=== PATIENT | male | born 1940 | race Caucasian/White ===

== ENCOUNTER 2018-07-18 15:09 | Emergency (ER) | payer MEDICARE, OTHER ==
[~2018-07-18] VITALS: Ht 182.9 cm; Wt 103.0 kg
[~2018-07-18 15:09] MED LIST: ANTIBIOTIC; DARVOCET; FLT05NA16
--- NOTE | 2018-07-18 15:38 | ED Abdominal Pain ---
General Stated Complaint: R SIDE PAIN Source of Information: Patient, Family History of Present Illness Date Seen by Provider: Jul 18, 2018 Time Seen by Provider: 15:34 Initial Comments This 78-year-old white male presents with right lower quadrant pain of 4 days' duration. Patient states the pain is dull and nonradiating. It is moderate in severity. There is no associated nausea, vomiting, fever, chills, dysuria, flank pain, or similar pain in the past. Patient believes that he's had a previous appendectomy approximately 20 years ago. Patient has had bilateral inguinal herniorrhaphy. The patient has had kidney stones in the past which have caused significantly different pain pattern than what he is presently experiencing. The patient employed an enema with good results in terms of output but no improvement in terms of his pain. Allergies and Home Medications Allergies Coded Allergies: Penicillins (Unverified Allergy, Mild, 02/16/09) Patient Home Medication List Home Medication List Reviewed: Yes Review of Systems Review of Systems Constitutional: No chills, No fever EENTM: No Blurred Vision Respiratory: Denies Cough Cardiovascular: Denies Chest Pain Gastrointestinal: Abdominal Pain (right lower quadrant); Denies Diarrhea, Denies Nausea, Denies Vomiting Genitourinary: Denies Burning, Denies Frequency, Denies Hematuria Musculoskeletal: No back pain, No joint pain Skin: No rash Psychiatric/Neurological: No Symptoms Reported Endocrine: No Symptoms Reported Hematologic/Lymphatic: No Symptoms Reported Past Glpulcu-Fsdsks-Ezycmd Hx Past Med/Social Hx: Reviewed Nursing Past Med/Soc Hx Patient Social History Recent Foreign Travel: No Contact w/Someone Who Travel: No Immunizations Up To Date Date of Pneumonia Vaccine: Jul 26, 2012 Past Medical History Reproductive Disorders: No Physical Exam Vital Signs Vital Signs - First Documented 07/18/18 15:35 Temp 97.9 Pulse 78 Resp 16 B/P (MAP) 149/88 (108) Pulse Ox 96 O2 Delivery Room Air Capillary Refill : Height/Weight/BMI Height: '" Weight: lbs. oz. kg; BMI Method: General Appearance: WD/WN, no apparent distress HEENT: normal ENT inspection Neck: normal inspection Respiratory: normal breath sounds Cardiovascular: regular rate, rhythm Gastrointestinal: normal bowel sounds, tenderness (there is moderate tenderness the right lower quadrant. No masses or rebound were noted.) Extremities: normal range of motion, non-tender, normal inspection Back: normal inspection Neurologic/Psychiatric: no motor/sensory deficits, alert Skin: normal color, warm/dry Progress/Results/Core Measures Results/Orders Lab Results Laboratory Tests Test 07/18/18 15:55 07/18/18 16:06 Range/Units White Blood Count 11.9 H 4.3-11.0 10^3/uL Red Blood Count 4.69 4.35-5.85 10^6/uL Hemoglobin 13.8 13.3-17.7 G/DL Hematocrit 39 L 40-54 % Mean Corpuscular Volume 83 80-99 FL Mean Corpuscular Hemoglobin 29 25-34 PG Mean Corpuscular Hemoglobin Concent 35 32-36 G/DL Red Cell Distribution Width 13.2 10.0-14.5 % Platelet Count 219 130-400 10^3/uL Mean Platelet Volume 9.0 7.4-10.4 FL Neutrophils (%) (Auto) 85 H 42-75 % Lymphocytes (%) (Auto) 5 L 12-44 % Monocytes (%) (Auto) 10 0-12 % Eosinophils (%) (Auto) 0 0-10 % Basophils (%) (Auto) 0 0-10 % Neutrophils # (Auto) 10.2 H 1.8-7.8 X 10^3 Lymphocytes # (Auto) 0.6 L 1.0-4.0 X 10^3 Monocytes # (Auto) 1.2 H 0.0-1.0 X 10^3 Eosinophils # (Auto) 0.0 0.0-0.3 10^3/uL Basophils # (Auto) 0.0 0.0-0.1 10^3/uL Neutrophils % (Manual) 87 % Lymphocytes % (Manual) 5 % Monocytes % (Manual) 4 % Eosinophils % (Manual) 0 % Basophils % (Manual) 2 % Band Neutrophils 0 % Hypersegmented Neutrophils SLIGHT Reactive Lymphocytes 2 % Toxic Granulation 1+ Poikilocytosis SLIGHT Microcytosis SLIGHT Elliptocytes SLIGHT Sodium Level 140 135-145 MMOL/L Potassium Level 4.0 3.6-5.0 MMOL/L Chloride Level 100 98-107 MMOL/L Carbon Dioxide Level 25 21-32 MMOL/L Anion Gap 15 H 5-14 MMOL/L Blood Urea Nitrogen 26 H 7-18 MG/DL Creatinine 1.59 H 0.60-1.30 MG/DL Estimat Glomerular Filtration Rate 42 BUN/Creatinine Ratio 16 Glucose Level 112 H 70-105 MG/DL Calcium Level 9.5 8.5-10.1 MG/DL Corrected Calcium 9.3 8.5-10.1 MG/DL Total Bilirubin 1.0 0.1-1.0 MG/DL Aspartate Amino Transf (AST/SGOT) 25 5-34 U/L Alanine Aminotransferase (ALT/SGPT) 20 0-55 U/L Alkaline Phosphatase 105 40-136 U/L Total Protein 7.3 6.4-8.2 GM/DL Albumin 4.3 3.2-4.5 GM/DL Lipase 10 8-78 U/L Urine Color YELLOW Urine Clarity CLEAR Urine pH 7 5-9 Urine Specific [place] 1.005 L 1.016-1.022 Urine Protein 2+ H NEGATIVE Urine Glucose (UA) NEGATIVE NEGATIVE Urine Ketones 3+ H NEGATIVE Urine Nitrite NEGATIVE NEGATIVE Urine Bilirubin NEGATIVE NEGATIVE Urine Urobilinogen NORMAL NORMAL MG/DL Urine Leukocyte Esterase NEGATIVE NEGATIVE Urine RBC (Auto) 3+ H NEGATIVE Urine RBC 10-25 H /HPF Urine WBC 0-2 /HPF Urine Squamous Epithelial Cells 0-2 /HPF Urine Renal Epithelial Cells NONE /HPF Urine Crystals NONE /LPF Urine Bacteria TRACE /HPF Urine Casts PRESENT /LPF Urine Hyaline Casts 0-2 H /LPF Urine Mucus SMALL H /LPF Urine Culture Indicated NO My Orders Orders - BRIAN MONTEZ MD Comprehensive Metabolic Panel (07/18/18 15:32) Lipase (07/18/18 15:32) Ua Culture If Indicated (07/18/18 15:32) Cbc With Automated Diff (07/18/18 15:32) Ns Iv 1000 Ml (Sodium Chloride 0.9%) (07/18/18 15:45) Manual Differential (07/18/18 15:55) Ct Abdomen/Pelvis Wo (07/18/18 15:32) Vital Signs/I&O 07/18/18 15:35 Temp 97.9 Pulse 78 Resp 16 B/P (MAP) 149/88 (108) Pulse Ox 96 O2 Delivery Room Air Progress Progress Note : Time: 17:29 Progress Note The patient's laboratory evaluation was essentially unremarkable including CBC and urinalysis. CT the abdomen and pelvis demonstrated a 5 mm right distal UVJ stone that was obstructing. I shared the information with patient and family. I asked that they follow-up with her urologist with a phone call in the morning to the office. As patient return if any further problems or questions. Departure Impression Primary Impression: Kidney stone Disposition: HOME, SELF-CARE Condition: Unchanged Departure-Patient Inst. Decision time for Depature: 17:35 Referrals: BRIAN COULTER MD (PCP/Family) Primary Care Physician FAY BROOKS MD Patient Instructions: Kidney Stones (DC) Add. Discharge Instructions: Follow-up with - call the office in the morning. Flomax and Hydrocodone as prescribed. Come back if any problems. BRIAN MONTEZ MD Jul 18, 2018 15:38
[2018-07-18] MEDS ORDERED: NS IV 1000 ML 1,000 ML IV SCH (15:45)
[2018-07-18 16:19] LABS: BASOPHILS % (AUTO) 0 % (0-10); EOSINOPHILS % (AUTO) 0 % (0-10); HEMATOCRIT 39 % (40-54); HEMOGLOBIN 13.8 G/DL (13.3-17.7); LYMPHOCYTES # (AUTO) 0.6 X 10^3 (1.0-4.0); LYMPHOCYTES % (AUTO) 5 % (12-44); MEAN CORPUSCULAR HEMOGLOBIN 29 PG (25-34); MEAN CORPUSCULAR HGB CONC 35 G/DL (32-36); MEAN CORPUSCULAR VOLUME 83 FL (80-99); MONOCYTES # (AUTO) 1.2 X 10^3 (0.0-1.0); MONOCYTES % (AUTO) 10 % (0-12); NEUTROPHILS # (AUTO) 10.2 X 10^3 (1.8-7.8); NEUTROPHILS % (AUTO) 85 % (42-75); PLATELET COUNT 219 10^3/uL (130-400); RED BLOOD COUNT 4.69 10^6/uL (4.35-5.85); RED CELL DISTRIBUTION WIDTH 13.2 % (10.0-14.5); WHITE BLOOD COUNT 11.9 10^3/uL (4.3-11.0)
--- OUTSIDE RECORDS SUMMARY | 2018-07-18 16:33 | XMS REPORT | Continuity of Care Document ---
Author Author [facility] Organization [facility] Address Unknown Phone Unavailable Allergies There is no data. Medications There is no data. Problems There is no data. Procedures There is no data. Results There is no data. Encounters ACCT No. Visit Date/Time Discharge Status Pt. Type Provider Facility Loc./Unit Complaint [id number] 01/31/2014 07:42:00 01/31/2014 23:59:59 CLS Outpatient [id number] 01/24/2014 14:35:00 01/24/2014 23:59:59 CLS Outpatient [id number] 06/20/2013 09:12:00 06/20/2013 23:59:59 CLS Outpatient
[2018-07-18 16:37] LABS: BACTERIA,URINE TRACE /HPF; BILIRUBIN,URINE NEGATIVE (NEGATIVE); CLARITY,URINE CLEAR; COLOR,URINE YELLOW; GLUCOSE, URINE (UA) NEGATIVE (NEGATIVE); KETONES,URINE 3+ (NEGATIVE); LEUKOCYTE ESTERASE ,URINE NEGATIVE (NEGATIVE); NITRITE,URINE NEGATIVE (NEGATIVE); PH,URINE 7 (5-9); PROTEIN,URINE 2+ (NEGATIVE); UROBILINOGEN,URINE NORMAL (NORMAL); WBC,URINE 0-2 /HPF
[2018-07-18 16:38] LABS: HYALINE CASTS, URINE 0-2 /LPF; SQUAMOUS EPITHELIAL CELL,UR 0-2 /HPF
[2018-07-18 16:38] LABS: ALBUMIN 4.3 GM/DL (3.2-4.5); CALCIUM 9.5 MG/DL (8.5-10.1); CREATININE SERUM 1.59 MG/DL (0.60-1.30); TOTAL PROTEIN 7.3 GM/DL (6.4-8.2)
[2018-07-18 16:47] LABS: BAND NEUTROPHILS 0 %; BASOPHILS % (MANUAL) 2 %; EOSINOPHILS % (MANUAL) 0 %; LYMPHOCYTES % (MANUAL) 5 %; MONOCYTES % (MANUAL) 4 %; NEUTROPHILS % (MANUAL) 87 %
[2018-07-18 16:48] LABS: ELLIPT/OVALOCYTES SLIGHT; MICROCYTOSIS SLIGHT; POIKILOCYTOSIS SLIGHT; REACTIVE LYMPHOCYTES 2 %; TOXIC GRANULATION/VACUOLAZATIO 1+
[2018-07-18 16:49] LABS: HYPERSEGMENTED NEUT SLIGHT
--- NOTE | 2018-07-18 16:59 | Diagnostic Imaging Report ---
PROCEDURE: CT abdomen and pelvis without contrast. TECHNIQUE: Multiple contiguous axial images were obtained through the abdomen and pelvis without the use of intravenous contrast. INDICATION: Abdominal pain. There is nodular pleural thickening at the lung bases adjacent to the dome of each diaphragm of uncertain etiology. These could be some pleural plaques but no calcifications are seen. Well-defined mass is not identified. There is no effusion. The liver, gallbladder and bile ducts are normal. The spleen, pancreas and adrenals are normal. Left kidney is normal. There is mild pelvocaliectasis present on the right with the right ureter being dilated down to the ureterovesical junction where there is a 3 x 5 mm calculus just proximal to the ureterovesical junction. There is no intrinsic abnormality of the bladder. Prostate is normal. There is diverticulosis of the colon with no evidence of diverticulitis or other acute bowel abnormality. IMPRESSION: There is a 5 mm calculus in the distal right ureter causing obstruction at this site. There is diverticulosis of the colon with no evidence of diverticulitis. There is nodularity of both hemidiaphragms but this is stable compared to the prior CT from 2008. Dictated by: Dictated on workstation # [id number]
[2018-07-18] MEDS ORDERED: ONDANSETRON 4 MG/2 ML (SDV) Z0FRAN ONE (17:42)
[2018-07-18] MEDS ORDERED: ONDANSETRON 4 MG/2 ML (SDV) Z0FRAN IVP ONE (17:45)
[2018-07-18 18:59] VITALS: BP 155/78
[2018-07-19] MEDS ORDERED: LOSA1TAB23 PO (15:22)
[2018-07-19] MEDS ORDERED: TRAV5DRO OU (15:22)
[2018-07-19] MEDS ORDERED: FLUT16SP22 NSEACH (15:22)
[2018-07-19] MEDS ORDERED: TAMS0.4C2 PO (15:22)
[2018-07-19] MEDS ORDERED: HYDR-3812 PO (15:22)
== END 2018-07-18 18:58 | disposition home or self-care (01) ==
LOC: EDUNIT# 15:09 → ER 15:10
DX: N20.2 Calculus of kidney with calculus of ureter (principal); Z88.0 Allergy status to penicillin; Z90.89 Acquired absence of other organs; Z98.890 Other specified postprocedural states; Z87.442 Personal history of urinary calculi
CPT/HCPCS: 36415; 74176; 80053; 81000; 83690; 85007; 85027; 96374

== ENCOUNTER 2018-07-19 14:35 | Outpatient (CLI) | payer MEDICARE, OTHER ==
[~2018-07-19] VITALS: Ht 182.9 cm; Wt 103.0 kg
[~2018-07-19 14:35] MED LIST changes: -CIPR-225 PO; -FLUT16SP22 NSEACH; -HYDR-3812 PO; -LOSA1TAB23 PO; -TAMS0.4C2 PO; -TRAV5DRO OU
[2018-07-19] MEDS ORDERED: LOSA1TAB23 PO (15:22)
[2018-07-19] MEDS ORDERED: TAMS0.4C2 PO (15:22)
[2018-07-19] MEDS ORDERED: TRAV5DRO OU (15:22)
[2018-07-19] MEDS ORDERED: FLUT16SP22 NSEACH (15:22)
[2018-07-19] MEDS ORDERED: HYDR-3812 PO (15:22)
[2018-07-20] MEDS ORDERED: CIPR-225 PO (10:59)
== END 2018-07-19 15:38 | disposition home or self-care (01) ==
LOC: PREOP 14:35
PROVIDERS: ATTEND Urology
DX: Z01.818 Encounter for other preprocedural examination (principal)

== ENCOUNTER → 2018-07-19 | Outpatient (CLI) | payer MEDICARE, OTHER ==
[~2018-07-19] MED LIST changes: +CIPR-225 PO; +FLUT16SP22 NSEACH; +HYDR-3812 PO; +LOSA1TAB23 PO; +TAMS0.4C2 PO; +TRAV5DRO OU
--- NOTE | 2018-07-19 13:37 | Diagnostic Imaging Report ---
Indication: Nephrolithiasis. KUB 1:34 PM Since comparison exam from 04/16/2009, the ureteral stent has been removed. There are no opacities seen over the right kidney. There is a 3 mm opacity projecting over the left 12th rib which also is in the shadow of the left renal upper pole. There is a 3 mm calcification near the right ureterovesical junction that could be either phlebolith versus distal ureteral calculus. Impression: Questionable calculus upper pole left kidney. Questionable calculus right ureterovesical junction. Dictated by: Dictated on workstation # [id number]
== END ==
LOC: RAD 13:02
PROVIDERS: ATTEND Urology
DX: N20.2 Calculus of kidney with calculus of ureter (principal)
CPT/HCPCS: 74018

== ENCOUNTER 2018-07-20 06:56 | Day surgery (SDC) | payer MEDICARE, OTHER ==
[~2018-07-20] VITALS: Ht 182.9 cm; Wt 103.0 kg
[~2018-07-20 06:56] MED LIST changes: +FLUT16SP22 NSEACH; +HYDR-3812 PO; +LOSA1TAB23 PO; +TAMS0.4C2 PO; +TRAV5DRO OU
--- OUTSIDE RECORDS SUMMARY | 2018-07-20 07:06 | XMS REPORT | Continuity of Care Document ---
Author Author [facility] Organization [facility] Address Unknown Phone Unavailable Allergies Active Description Code Type Severity Reaction Onset Reported/Identified Relationship to Patient Clinical Status Yes Penicillins [id number] Drug Allergy Mild N/A 02/16/2009 Yes Penicillins [id number] Drug Allergy Mild PT ALLERGIC TO 07/19/2018 Medications There is no data. 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 Results Test Result Range Complete blood count (CBC) with automated white blood cell (WBC) differential - 07/18/18 15:55 Blood leukocytes automated count (number/volume) 11.9 10*3/uL 4.3-11.0 Blood erythrocytes automated count (number/volume) 4.69 10*6/uL 4.35-5.85 Venous blood hemoglobin measurement (mass/volume) 13.8 g/dL 13.3-17.7 Blood hematocrit (volume fraction) 39 % 40-54 Automated erythrocyte mean corpuscular volume 83 [foz_us] 80-99 Automated erythrocyte mean corpuscular hemoglobin (mass per erythrocyte) 29 pg 25-34 Automated erythrocyte mean corpuscular hemoglobin concentration measurement ( mass/volume) 35 g/dL 32-36 Automated erythrocyte distribution width ratio 13.2 % 10.0-14.5 Automated blood platelet count (count/volume) 219 10*3/uL 130-400 Automated blood platelet mean volume measurement 9.0 [foz_us] 7.4-10.4 Automated blood neutrophils/100 leukocytes 85 % 42-75 Automated blood lymphocytes/100 leukocytes 5 % 12-44 Blood monocytes/100 leukocytes 10 % 0-12 Automated blood eosinophils/100 leukocytes 0 % 0-10 Automated blood basophils/100 leukocytes 0 % 0-10 Blood neutrophils automated count (number/volume) 10.2 10*3 1.8-7.8 Blood lymphocytes automated count (number/volume) 0.6 10*3 1.0-4.0 Blood monocytes automated count (number/volume) 1.2 10*3 0.0-1.0 Automated eosinophil count 0.0 10*3/uL 0.0-0.3 Automated blood basophil count (count/volume) 0.0 10*3/uL 0.0-0.1 Comprehensive metabolic panel - 07/18/18 15:55 Serum or plasma sodium measurement (moles/volume) 140 mmol/L 135-145 Serum or plasma potassium measurement (moles/volume) 4.0 mmol/L 3.6-5.0 Serum or plasma chloride measurement (moles/volume) 100 mmol/L 98-107 Carbon dioxide 25 mmol/L 21-32 Serum or plasma anion gap determination (moles/volume) 15 mmol/L 5-14 Serum or plasma urea nitrogen measurement (mass/volume) 26 mg/dL 7-18 Serum or plasma creatinine measurement (mass/volume) 1.59 mg/dL 0.60-1.30 Serum or plasma urea nitrogen/creatinine mass ratio 16 NRG Serum or plasma creatinine measurement with calculation of estimated glomerular filtration rate 42 NRG Serum or plasma glucose measurement (mass/volume) 112 mg/dL 70-105 Serum or plasma calcium measurement (mass/volume) 9.5 mg/dL 8.5-10.1 Serum or plasma total bilirubin measurement (mass/volume) 1.0 mg/dL 0.1-1.0 Serum or plasma alkaline phosphatase measurement (enzymatic activity/volume) 105 U/L 40-136 Serum or plasma aspartate aminotransferase measurement (enzymatic activity/ volume) 25 U/L 5-34 Serum or plasma alanine aminotransferase measurement (enzymatic activity/volume ) 20 U/L 0-55 Serum or plasma protein measurement (mass/volume) 7.3 g/dL 6.4-8.2 Serum or plasma albumin measurement (mass/volume) 4.3 g/dL 3.2-4.5 CALCIUM CORRECTED 9.3 mg/dL 8.5-10.1 Lipase - 07/18/18 15:55 Lipase 10 U/L 8-78 Blood manual differential performed detection - 07/18/18 15:55 Blood monocytes/100 leukocytes 4 % NRG Manual blood segmented neutrophils/100 leukocytes 87 % NRG Blood band neutrophils/100 leukocytes 0 % NRG Manual blood lymphocytes/100 leukocytes 5 % NRG Manual eosinophils/100 leukocytes in nose 0 % NRG Manual blood basophils/100 leukocytes 2 % NRG Blood lymphocytes variant/100 leukocytes 2 % NRG Blood ovalocytes detection by light microscopy SLIGHT NRG Blood toxic granules detection by light microscopy 1+ NRG Blood poikilocytosis detection by light microscopy SLIGHT NRG Blood microcytes detection by light microscopy SLIGHT NRG Blood hypersegmented neutrophils detection by light microscopy SLIGHT NRG Complete urinalysis with reflex to culture - 07/18/18 16:06 Urine color determination YELLOW NRG Urine clarity determination CLEAR NRG Urine pH measurement by test strip 7 5-9 Specific gravity of urine by test strip 1.005 1.016- 1.022 Urine protein assay by test strip, semi-quantitative 2+ NEGATIVE Urine glucose detection by automated test strip NEGATIVE NEGATIVE Erythrocytes detection in urine sediment by light microscopy 3+ NEGATIVE Urine ketones detection by automated test strip 3+ NEGATIVE Urine nitrite detection by test strip NEGATIVE NEGATIVE Urine total bilirubin detection by test strip NEGATIVE NEGATIVE Urine urobilinogen measurement by automated test strip (mass/volume) NORMAL NORMAL Urine leukocyte esterase detection by dipstick NEGATIVE NEGATIVE Automated urine sediment erythrocyte count by microscopy (number/high power field) [HPF] NRG Automated urine sediment leukocyte count by microscopy (number/high power field ) [HPF] NRG Bacteria detection in urine sediment by light microscopy TRACE NRG Squamous epithelial cells detection in urine sediment by light microscopy 0-2 NRG Crystals detection in urine sediment by light microscopy NONE NRG Casts detection in urine sediment by light microscopy PRESENT NRG Mucus detection in urine sediment by light microscopy SMALL NRG Complete urinalysis with reflex to culture NO NRG Hyaline casts detection in urine sediment by light microscopy 0-2 NRG Renal epithelial cells detection in urine sediment by light microscopy NONE NRG Encounters ACCT No. Visit Date/Time Discharge Status Pt. Type Provider Facility Loc./Unit Complaint [id number] 07/19/2018 14:35:00 07/19/2018 15:38:00 DIS Outpatient FAY BROOKS MD [facility] PREOP RIGHT URETERAL STONE [id number] 07/18/2018 15:10:00 07/18/2018 18:58:00 DIS Emergency TC LESLIE, BRIAN Tran [facility] ER R SIDE PAIN [id number] 01/31/2014 07:42:00 01/31/2014 23:59:59 CLS Outpatient DELIA CARTWRIGHT [facility] RAD ABD FULLNESS,PAIN [id number] 01/24/2014 14:35:00 01/24/2014 23:59:59 CLS Outpatient TODD LESLIE, FAY Najera [facility] RAD RT EPIDIDMITIS [id number] 06/20/2013 09:12:00 06/20/2013 23:59:59 CLS Outpatient CLEVELAND RENTERIA [facility] RAD CHEST PAIN,HERNANDEZ [id number] 07/20/2018 11:45:00 PEN Preadmit FAY BROOKS MD [facility] SDC RIGHT URETERAL STONE [id number] 07/19/2018 13:02:00 ACT Outpatient FAY BROOKS MD [facility] RAD N20.0 RT URETERAL STONE
[2018-07-20 07:15] VITALS: BP 152/87
[2018-07-20] MEDS ORDERED: cefTRIAXone FOR IV USE 1,000 MG in NS (IVPB) 50 ML IV ONE (07:30)
[2018-07-20] MEDS: LACTATED RINGERS 1,000 ML IV PRN ×2 (07:35→09:38)
--- NOTE | 2018-07-20 07:59 | Progress Note-Pre Operative ---
Pre-Operative Progress Note H&P Reviewed The H&P was reviewed, patient examined and no changes noted. Date Seen by Provider: Jul 20, 2018 Time Seen by Provider: 07:58 Date H&P Reviewed: Jul 20, 2018 Time H&P Reviewed: 07:58 Pre-Operative Diagnosis: RT DISTAL URETERAL STONE FAY BROOKS MD Jul 20, 2018 7:59 am
[2018-07-20] MEDS ORDERED: ONDANSETRON 4 MG/2 ML (SDV) Z0FRAN ONE (08:05)
[2018-07-20] MEDS ORDERED: LIDOCAINE PF 2% 2 ML (XYLOCAINE) VIAL ONE (08:05)
[2018-07-20] MEDS ORDERED: proPOfol 200 MG/20 ML (DIPRIVAN) VIAL IV ONE (08:05)
[2018-07-20] MEDS ORDERED: MIDAZOLAM 2 MG/2 ML (VERSED) VIAL ONE (08:06)
[2018-07-20] MEDS ORDERED: fentaNYL INJECTION 100 MCG/2 ML AMP ONE (08:06)
[2018-07-20] MEDS ORDERED: SEVOFLURANE (ULTANE) 15 ML INHAL SOLN ONE ×6 (08:08→09:51)
[2018-07-20] MEDS ORDERED: KETOROLAC 30 MG/ML VIAL ONE (08:08)
[2018-07-20] MEDS ORDERED: FUROSEMIDE 40 MG/4 ML INJ (LASIX) ONE (08:08)
--- NOTE | 2018-07-20 08:20 | Diagnostic Imaging Report ---
INDICATION: Preop ESWL. Compared with study one day prior. Right pelvic calcification correlating with the distal ureteral stone present on earlier CT is 4 mm cephalocaudal unchanged. Left pelvic calcification is unchanged previously shown to be vascular. Tiny right intrarenal stone present on earlier CT is not apparent at this exam. No adverse development. IMPRESSION: Roughly 4 mm distal right ureteral stone is radiographically unchanged from prior exams. Dictated by: Dictated on workstation # [id number]
--- NOTE | 2018-07-20 09:20 | Progress Note-Post Operative ---
Post-Operative Progess Note Surgeon (s)/Residential Coordinator (s) Surgeon FAY BROOKS MD Residential Coordinator: NONE Pre-Operative Diagnosis RT DISTAL URETERAL STONE Post-Operative Diagnosis SAME Procedure & Operative Findings Date of Procedure 07/20/18 Procedure Performed/Findings ATTEMPTED URETEROSCOPY AND RT ESWL Anesthesia Type GENERAL Estimated Blood Loss Estimated blood loss (mL): NONE Specimens/Packing Specimens Removed NONE Packing: NONE FAY BROOKS MD Jul 20, 2018 9:20 am
--- NOTE | 2018-07-20 09:23 | Discharge Inst-Urology ---
Discharge Inst-Urology Patient Instructions/Follow Up Plan Please make appointment to been seen in office in 3 weeks. KUB prior to it KUB on way home Post ESWL instructions Increase oral fluids for 48 hours and then as needed. Diet and Activity as tolerated. If questions or concerns contact your physician Or seek help at emergency department. FAY BROOKS MD Jul 20, 2018 9:23 am
[2018-07-20] MEDS ORDERED: LACTATED RINGERS 0 ML IV ONE (09:34)
[2018-07-20] MEDS ORDERED: ONDANSETRON 4 MG/2 ML (SDV) Z0FRAN IVP PRN (10:00)
[2018-07-20] MEDS ORDERED: morphine INJ 10 MG/ML 1ML (SYR OR VIAL) IVP ONE (10:00)
[2018-07-20 10:40] VITALS: BP 138/65
[2018-07-20] MEDS ORDERED: CIPR-225 PO (10:59)
[2018-07-20 11:10] VITALS: BP 129/63
[2018-07-20 11:40] VITALS: BP 134/67
[2018-07-20 11:45] VITALS: BP 134/67
--- NOTE | 2018-07-20 12:26 | Anesthesia-General Post-Op ---
General Patient Condition Mental Status/LOC: Same as Preop Cardiovascular: Satisfactory Nausea/Vomiting: Absent Respiratory: Satisfactory Pain: Controlled Complications: Absent Post Op Complications Complications None Follow Up Care/Instructions Patient Instructions None needed. Anesthesia/Patient Condition Patient Condition Patient is doing well, no complaints, stable vital signs, no apparent adverse anesthesia problems. No complications reported per nursing. D/C home per [facility] Criteria: Yes BOLA RODRIGUEZ CRNA Jul 20, 2018 12:26
--- NOTE | 2018-07-20 13:21 | Diagnostic Imaging Report ---
INDICATION: Obstructive uropathy. COMPARISON: 07/20/2018. FINDINGS: The bowel gas pattern is nonspecific. There is a persistent calcification near the right UVJ, suspect for a distal ureteral stone. There are no other abnormal abdominal calcifications. IMPRESSION: Persistent 4-5 mm calcification near the right UVJ, suspect for a distal ureteral stone. Nonspecific bowel gas pattern. Dictated by: Dictated on workstation # [id number]
--- NOTE | 2018-07-20 14:53 | OPERATIVE REPORT ---
DATE OF SERVICE: 07/20/2018 PREOPERATIVE DIAGNOSIS: Right distal ureteral stone. POSTOPERATIVE DIAGNOSIS: Right distal ureteral stone. OPERATION PERFORMED: Attempted right ureteroscopy and right ESWL. SURGEON: Chaka Brooks MD ANESTHESIA: General. COMPLICATIONS: None. DESCRIPTION OF PROCEDURE: Under satisfactory general anesthesia, the patient in lithotomy position in the cystoscopy suite. Genitalia were prepped and draped in the usual sterile fashion. The cystoscope was introduced under vision. The anterior urethra was normal. The prostate was not enlarged. The bladder neck was open. The bladder revealed some trabeculations. Ureteric orifices were displaced upward bilaterally with clear efflux sluggish on the right side. I was unable to perform a right ureteroscopy because of a curvature in the ureter. I discontinued any further attempt in order not to cause any harm and moved the patient to the ESWL room supine on the special bed. The stone was localized and we had to go to 3500 shocks at kV of 6 to completely fragment the stone. The patient received 40 mg of Lasix and 30 mg of Toradol IV at the end of the procedure. He tolerated the procedure and anesthesia well and was sent to recovery room in stable condition. Job ID: [id number] DocumentID: [id number] Dictated Date: 07/20/2018 09:51:28 [place] Operator Date: 07/20/2018 14:52:58 Dictated By: CHAKA BROOKS MD [facility]
== END 2018-07-20 11:45 | disposition home or self-care (01) ==
LOC: SDC 06:56
PROVIDERS: ATTEND Urology
DX: N20.1 Calculus of ureter (principal); I10 Essential (primary) hypertension; K21.9 Gastro-esophageal reflux disease without esophagitis; E66.9 Obesity, unspecified; Z68.30 Body mass index [BMI] 30.0-30.9, adult; Z79.899 Other long term (current) drug therapy
CPT/HCPCS: 74018; 87081

== ENCOUNTER → 2018-08-10 | Outpatient (CLI) | payer MEDICARE, OTHER ==
[~2018-08-10] MED LIST changes: +CIPR-225 PO
--- NOTE | 2018-08-10 17:54 | Diagnostic Imaging Report ---
INDICATION: Status post lithotripsy with distal right ureteral stone. TIME OF EXAM: 02:01 p.m. Correlation is made with prior abdominal radiograph from 07/20/2018. FINDINGS: Previously noted calculus in the right pelvis near the UVJ is no longer appreciated. No radiopaque urinary tract calculi are seen. The bowel gas pattern is unremarkable. IMPRESSION: Right pelvic calcification is no longer visualized. Dictated by: Dictated on workstation # [id number]
== END ==
LOC: RAD 13:25
PROVIDERS: ATTEND Urology
DX: N28.89 Other specified disorders of kidney and ureter (principal); Z87.442 Personal history of urinary calculi
CPT/HCPCS: 74018

== ENCOUNTER 2020-05-21 05:33 | Outpatient (RCR) | payer MEDICARE, OTHER ==
[~2020-05-21] VITALS: Ht 182.9 cm; Wt 102.3 kg
[~2020-05-21 05:33] MED LIST changes: +ACHD5005 PO; -HYDR-3812 PO
== END 2020-05-21 10:19 | disposition home or self-care (01) ==
LOC: PREOP 05:33
PROVIDERS: ATTEND Surgery
DX: Z01.812 Encounter for preprocedural laboratory examination (principal); C44.619 Basal cell carcinoma of skin of left upper limb, including shoulder; Z20.828 Contact with and (suspected) exposure to other viral communicable diseases
CPT/HCPCS: 87635

== ENCOUNTER 2020-05-23 10:56 | Day surgery (SDC) | payer MEDICARE, OTHER ==
[~2020-05-23] VITALS: Ht 182.9 cm; Wt 102.3 kg
[2020-05-23] VITALS (8 sets, daily range): BP systolic 99–151; BP diastolic 59–76
[2020-05-23] MEDS ORDERED: LACTATED RINGERS 1,000 ML IV PRN (11:33)
[2020-05-23] MEDS ORDERED: CLINDAMYCIN 600 MG/50 ML IVPB 50 ML IV ONE (11:45)
[2020-05-23] MEDS ORDERED: BUP/EPI 0.5% 1:200,000 (MARCAINE) 10ML VIAL IJ ONE ×2 (12:15)
[2020-05-23] MEDS ORDERED: PROPOFOL INJECTION 50 ML IV ONE (12:20)
[2020-05-23] MEDS ORDERED: MIDAZOLAM 2 MG/2 ML (VERSED) VIAL ONE (12:21)
[2020-05-23] MEDS ORDERED: fentaNYL INJECTION 100 MCG/2 ML AMP ONE (12:21)
--- OUTSIDE RECORDS SUMMARY | 2020-05-23 12:43 | XMS REPORT | Continuity of Care Document ---
Author Organization Unknown Address Unknown Phone Unavailable Allergies Active Description Code Type Severity Reaction Onset Reported/Identified Relationship to Patient Clinical Status Yes Penicillins [id number] Drug Aller gy Mild N/A 02/16/2009 Yes Penicillins [id number] Drug Aller gy Mild PT ALLERGIC TO 07/19/2018 Medications There is no data. 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 07/18/2018 DELIA CARTWRIGHT WIRE STRIPPING MACHINE OPERATOR Ot 789.00 ABDOMINAL PAIN, UNSPECIFIED SITE 07/18/2018 DELIA CARTWRIGHT WIRE STRIPPING MACHINE OPERATOR Ot 789.1 HEPATOMEGALY 07/19/2018 FAY BROOKS MD Ot Z01.8 18 ENCOUNTER FOR OTHER PREPROCEDURAL EXAMIN 07/20/2018 FAY BROOKS MD Ot Z01.8 18 ENCOUNTER FOR OTHER PREPROCEDURAL EXAMIN 07/20/2018 FAY BROOKS MD Ot E66.9 OBESITY, UNSPECIFIED 07/20/2018 FAY BROOKS MD Ot I10 ESSENTIAL (PRIMARY) HYPERTENSION 07/20/2018 FAY BROOKS MD, Ot K21.9 GASTRO-ESOPHAGEAL REFLUX DISEASE WITHOUT 07/20/2018 FAY BROOKS MD Ot N20.1 CALCULUS OF URETER 07/20/2018 FAY BROOKS MD, Ot Z68.3 0 BODY MASS INDEX (BMI) 30.0-30.9, ADULT 07/20/2018 FAY BROOKS MD Ot Z79.8 99 OTHER SOAP GRINDER (CURRENT) DRUG THERAPY 07/28/2018 TODD MD, FAY A Ot E66.9 OBESITY, UNSPECIFIED 07/28/2018 FAY BROOKS MD Ot I10 ESSENTIAL (PRIMARY) HYPERTENSION 07/28/2018 FAY BROOKS MD Ot K21.9 GASTRO-ESOPHAGEAL REFLUX DISEASE WITHOUT 07/28/2018 FAY BROOKS MD Ot N20.1 CALCULUS OF URETER 07/28/2018 FAY BROOKS MD Ot Z68.3 0 BODY MASS INDEX (BMI) 30.0-30.9, ADULT 07/28/2018 FAY BROOKS MD Ot Z79.8 99 OTHER [facility] (CURRENT) DRUG THERAPY 07/28/2018 FAY BROOKS MD, Ot E66.9 OBESITY, UNSPECIFIED 07/28/2018 FAY BROOKS MD Ot I10 ESSENTIAL (PRIMARY) HYPERTENSION 07/28/2018 FAY BROOKS MD, Ot K21.9 GASTRO-ESOPHAGEAL REFLUX DISEASE WITHOUT 07/28/2018 FAY BROOKS MD Ot N20.1 CALCULUS OF URETER 07/28/2018 FAY BROOKS MD, Ot Z68.3 0 BODY MASS INDEX (BMI) 30.0-30.9, ADULT 07/28/2018 FAY BROOKS MD, Ot Z79.8 99 OTHER SOAP GRINDER (CURRENT) DRUG THERAPY 08/10/2018 FAY BROOKS MD Ot N20.2 CALCULUS OF KIDNEY WITH CALCULUS OF URET 08/11/2018 FAY BROOKS MD Ot N28.8 9 OTHER SPECIFIED DISORDERS OF KIDNEY AND 08/11/2018 FAY BROOKS MD Ot Z87.4 42 PERSONAL HISTORY OF URINARY CALCULI 09/03/2018 FAY BROOKS MD Ot N28.8 9 OTHER SPECIFIED DISORDERS OF KIDNEY AND 09/03/2018 FAY BROOKS MD, Ot Z87.4 42 PERSONAL HISTORY OF URINARY CALCULI Procedures There is no data. Results Test Result Range Complete blood count (CBC) with automate d white blood cell (WBC) differential - 07/18/18 15:55 Blood leukocytes automated count (number/volume) 11.9 10*3/uL 4.3-11.0 Blood erythrocytes automated count (number/volume) 4.69 10*6/uL 4.35-5.85 Venous blood hemoglobin measurement (mass/volume) 13.8 g/dL 13.3-17.7 Blood hematocrit (volume fraction) 39 % 40-54 Automated erythrocyte mean corpuscular volume 83 [ foz_us] 80-99 Automated erythrocyte mean corpuscular h emoglobin (mass per erythrocyte) 29 pg 25-34 Automated erythrocyte mean corpuscular h emoglobin concentration measurement (mass/volume) 35 g/dL 32-36 Automated erythrocyte distribution width ratio 13. 2 % 10.0- 14.5 Automated blood platelet count (count/volume) 219 10*3/uL [...] 10*3 1.0-4.0 Blood monocytes automated count (number/volume) 1. 2 10*3 0.0-1.0 Automated eosinophil count 0.0 10*3/uL 0 .0-0.3 Automated blood basophil count (count/volume) 0.0 10*3/uL 0.0-0.1 Comprehensive metabolic panel - 07/18/18 15:55 Serum or plasma sodium measurement (moles/volume) 140 mmol/L 135-145 Serum or plasma potassium measurement (moles/volume) 4.0 mmol/L 3.6-5.0 Serum or plasma chloride measurement (moles/volume) 100 mmol/L 98-107 Carbon dioxide 25 mmol/L 21-32 Serum or plasma anion gap determination (moles/volume) 15 mmol/L 5-14 Serum or plasma urea nitrogen measurement (mass/volume ) 26 mg/dL 7-18 Serum or plasma creatinine measurement (mass/volume) 1.59 mg/dL 0.60-1.30 Serum or plasma urea nitrogen/creatinine mass ratio 16 NRG Serum or plasma creatinine measurement w ith calculation of estimated glomerular filtration rate 42 NRG Serum or plasma glucose measurement (mass/volume) 112 mg/dL 70-105 Serum or plasma calcium measurement (mass/volume) 9.5 mg/dL 8.5-10.1 Serum or plasma total bilirubin measurement (mass/volu me) 1.0 mg/dL 0.1-1.0 Serum or plasma alkaline phosphatase cortney surement (enzymatic activity/volume) 105 U/L 40-136 Serum or plasma aspartate aminotransfera se measurement (enzymatic activity/volume) 25 U/L 5-34 Serum or plasma alanine aminotransferase measurement (enzymatic activity/volume) 20 U/L 0-55 Serum or plasma protein measurement (mass/volume) 7.3 g/dL 6.4-8.2 Serum or plasma albumin measurement (mass/volume) 4.3 g/dL 3.2-4.5 CALCIUM CORRECTED 9.3 mg/dL 8.5-10.1 Lipase - 07/18/18 15:55 Lipase 10 U/L 8-78 Blood manual differential performed dete ction - 07/18/18 15:55 Blood monocytes/100 leukocytes 4 % NRG Manual blood segmented neutrophils/100 leukocytes 87 % NRG Blood band neutrophils/100 leukocytes 0 % NRG Manual blood lymphocytes/100 leukocytes 5 % NRG Manual eosinophils/100 leukocytes in nose 0 % NRG Manual blood basophils/100 leukocytes 2 % NRG Blood lymphocytes variant/100 leukocytes 2 % NRG Blood ovalocytes detection by light microscopy SLI T NRG Blood toxic granules detection by light microscopy 1+ NRG Blood poikilocytosis detection by light microscopy SLIGHT NRG Blood microcytes detection by light microscopy I [facility] NRG Blood hypersegmented neutrophils detection by light mi croscopy SLIGHT NRG Complete urinalysis with reflex to cultu re - 07/18/18 16:06 Urine color determination YELLOW NRG Urine clarity determination CLEAR NR G Urine pH measurement by test strip 7 5-9 Specific gravity of urine by test strip 1.005 1.016-1.022 Urine protein assay by test strip, semi-quantitative 2+ NEGATIVE Urine glucose detection by automated test strip NE GATIVE NEGATIVE Erythrocytes detection in urine sediment by light micr oscopy 3+ NEGATIVE Urine ketones detection by automated test strip 3+ NEGATIVE Urine nitrite detection by test strip NEGATIVE NEGATIVE Urine total bilirubin detection by test strip NEGA TIVE NEGATIVE Urine urobilinogen measurement by automated test strip (mass/volume) NORMAL NORMAL Urine leukocyte esterase detection by dipstick NEG ATIVE NEGATIVE Automated urine sediment erythrocyte cou nt by microscopy (number/high power field) [HPF] NRG Automated urine sediment leukocyte count by microscopy (number/high power field) [HPF] NRG Bacteria detection in urine sediment by light microsco py TRACE NRG Squamous epithelial cells detection in u rine sediment by light microscopy 0-2 NRG Crystals detection in urine sediment by light microsco py NONE NRG Casts detection in urine sediment by light microscopy PRESENT NRG Mucus detection in urine sediment by light microscopy SMALL NRG Complete urinalysis with reflex to culture NO NRG Hyaline casts detection in urine sediment by light rick roscopy 0-2 NRG Renal epithelial cells detection in urin e sediment by light microscopy NONE NRG Methicillin resistant Staphylococcus aur eus (MRSA) screening culture - 07/20/18 07:25 Methicillin resistant Staphylococcus aureus (MRSA) scr eening culture NEG NRG Encounters ACCT No. Visit Date/Time Discharge Status Pt. Type Provider Facility Loc./Unit Complaint [id number] 05/21/2020 05:33:00 020 10:19:00 DIS Outpatient JAYESH ALEX DO [facility] PREOP MASS LEFT SHOULDER [id number] 08/10/2018 13:25:00 23:59:59 CLS Outpatient FAY BROOKS MD [facility] RAD STONES [id number] 07/20/2018 06:56:00 018 11:45:00 DIS Outpatient FAY BROOKS MD [facility] SDC RIGHT URETERAL STONE [id number] 07/19/2018 13:02:00 018 23:59:59 CLS Outpatient FAY BROOKS MD [facility] RAD N20.0 RT URETERAL STONE [id number] 07/19/2018 14:35:00 018 15:38:00 DIS Outpatient FAY BROOKS MD [facility] PREOP RIGHT URETERAL STONE [id number] 07/18/2018 15:10:00 18:58:00 DIS Emergency TC LESLIE, BRIAN Tran [facility] ER R SIDE PAIN [id number] 01/31/2014 07:42:00 014 23:59:59 CLS Outpatient DELIA CARTWRIGHT [facility] RAD JOSE [place] [id number] 01/24/2014 14:35:00 014 23:59:59 CLS Outpatient TODD LESLIE, FAY Najera [facility] RAD RT EPIDIDMITIS [id number] 06/20/2013 09:12:00 013 23:59:59 CLS Outpatient CLEVELAND RENTERIA [facility] RAD CHEST PAIN,HERNANDEZ [id number] 05/23/2020 11:50:00 P EN Preadmit JAYESH ALEX DO [facility] SDC MASS LEFT SHOULDER
--- NOTE | 2020-05-23 12:53 | Progress Note-Pre Operative ---
Pre-Operative Progress Note H&P Reviewed The H&P was reviewed, patient examined and no changes noted. Time Seen by Provider: 12:24 Date H&P Reviewed: May 23, 2020 Time H&P Reviewed: 12:25 Pre-Operative Diagnosis: Left Shoulder CA, site marked JAYESH ALEX DO May 23, 2020 12:53
--- NOTE | 2020-05-23 12:54 | Progress Note-Post Operative ---
Post-Operative Progess Note Surgeon (s)/Costume Rental Clerk (s) Surgeon JAYESH ALEX DO Costume Rental Clerk: none Pre-Operative Diagnosis Left Shoulder CA, site marked Post-Operative Diagnosis Same pending path Procedure & Operative Findings Date of Procedure 05/23/20 Procedure Performed/Findings Exc L should CA; 8.1 x 2.4 cm incision Anesthesia Type MAC Estimated Blood Loss Estimated blood loss (mL): less than 5ml Specimens/Packing Specimens Removed Left shoulder mass JAYESH ALEX DO May 23, 2020 12:54
[2020-05-23] MEDS ORDERED: HYDR-4226 PO ×2 (12:55)
--- NOTE | 2020-05-23 12:56 | Discharge Inst-Surgical ---
Discharge Inst-Surgical Depart Medication/Instructions New, Converted or Re-Newed RX: RX Given to Pt/Family Patient Instructions Follow up Appt: Make appointment for 1 week. [phone] Instructions: No lifting greater than 20 pounds. No strenuous activity. May shower in 24 hours, no tub bath or soaking. Use incentive spirometer at home as directed. No Smoking Skin/Wound Care: May remove bandages in am. You need to leave the sutures in place and come in to the clinic to have them removed. Symptoms to Report: Appetite Changes, Extremity Discoloration, Numbness/Tingling, Swelling Increased, Bleeding Excessive, Eyesight Changes, Pain Increased, Urine Color Change, Constipation(Persistent), Fever over 101 degree F, Pain/Pressure in chest, Urinating Difficulty, Cough Up/Vomit Blood, Heart Beat Irreg/Pounding, Pain/Pressure in jaw, Cramps in feet or legs, Lightheadedness, Pain/Pressure in shoulder, Diarrhea(Persistent), Memory Changes Suddenly, Questions/Concerns, Weight gain consecutive days, Dizziness/Fainting, Nausea/Vomiting, Shortness of Breath, Weight gain over 2 pounds If questions or concerns contact your physician Or seek help at emergency department. Activity Activity as Tolerated: Yes Activity Instructions: Avoid Stress to Incision Driving Instructions: No Driving/Refer to Dr. Ramirez Discharge Diet: No Restrictions Diet After 24 Hours: Clear Liquid if Nauseous If Any Problems/Questions/Issu: Contact Your Physician, Go to Emergency Room Skin/Wound Care Infection Signs and Symptoms: Increased Redness, Foul Odor of Wound, Increased Drainage, Skin Itchy or Has a Rash, Increased Swelling, Temperature Above 101 F Bathing Instructions: Shower Stitches/[place]/Dermabond Dis: Care of Stitches JAYESH ALEX DO May 23, 2020 12:56
--- NOTE | 2020-05-23 12:57 | Anesthesia-General Post-Op ---
MAC Patient Condition Mental Status/LOC: Same as Preop Cardiovascular: Satisfactory Nausea/Vomiting: Absent Respiratory: Satisfactory Pain: Controlled Complications: Absent Post Op Complications Complications None Follow Up Care/Instructions Patient Instructions None needed. Anesthesiology Discharge Order Discharge Order Patient is doing well, no complaints, stable vital signs, no apparent adverse anesthesia problems. No complications reported per nursing. MINH BERGER CRNA May 23, 2020 12:57
[2020-05-23] MEDS ORDERED: ONDANSETRON 4 MG/2 ML (SDV) Z0FRAN IVP PRN (13:00)
[2020-05-23] MEDS ORDERED: morphine INJ 10 MG/ML 1ML (SYR OR VIAL) IVP ONE (13:00)
[2020-05-23] MEDS ORDERED: fentaNYL INJECTION 100 MCG/2 ML AMP IVP ONE (13:00)
--- NOTE | 2020-05-24 07:29 | OPERATIVE REPORT ---
DATE OF SERVICE: 05/23/2020 PREOPERATIVE DIAGNOSIS: Left shoulder cancer. POSTOPERATIVE DIAGNOSIS: Left shoulder cancer, pending pathology. PROCEDURE PERFORMED: Excision of left shoulder cancer 8.1 x 2.6 cm incision. SURGEON: Mario Rodgers DO. SPECIAL SERVICES SUPERVISOR: None. ANESTHESIA: MAC. BLOOD LOSS: Less than 5 mL. FLUIDS: Per anesthesia. POSTOPERATIVE CONDITION: Stable. INDICATION FOR PROCEDURE: The patient is a 80-year-old male, who has a cancer on his left shoulder and needed to get this removed. FINDINGS: The patient had his left shoulder cancer removed at an 8.1 x 2.6 cm incision with about 2 to 3 cm undermining in all directions. PROCEDURE NOTE: After informed consent was obtained, the patient was brought to the operating room and placed on the operating table in supine position. I put a slight bump under his left shoulder. His left shoulder had been marked, surgical pause performed, everyone agreed on the site marking. He was then sterilely prepped and draped in a normal fashion. Local lidocaine was used to infiltrate the skin around the tissue. I then made an elliptical incision. We measured the incision and it was 8.1 x 2.6 cm. I made the incision with a #15 blade, carried down through the skin into subcutaneous tissue, then deepened down to the subcutaneous tissue with Bovie electrocautery, going down into the subcutaneous tissue and then under this mass and removing this elliptical incision and mass, then marked it short stitch superior and long stitch lateral and then passed this off table to be sent to pathology. The shoulder was tight and so I had to do undermining in all directions at least 2 to 3 cm. This was able to then bring the skin together. At this point, I then closed the incision with 2-0 Prolene suture, five interrupted vertical mattress sutures were used. The area was cleaned and dried, dressing placed and the patient was transferred to the recovery room in a stable condition. Sponge and needle counts were correct at the end of the case. Job ID: [id number] DocumentID: [id number] Dictated Date: 05/23/2020 21:55:05 Clinical Consultant Date: 05/24/2020 07:29:12 Dictated By: MARIO RODGERS DO
== END 2020-05-23 14:35 | disposition home or self-care (01) ==
LOC: SDC 10:56
PROVIDERS: ATTEND Surgery
DX: C44.619 Basal cell carcinoma of skin of left upper limb, including shoulder (principal); J45.909 Unspecified asthma, uncomplicated; I10 Essential (primary) hypertension; K21.9 Gastro-esophageal reflux disease without esophagitis; Z79.899 Other long term (current) drug therapy; Z11.2 Encounter for screening for other bacterial diseases; Z88.0 Allergy status to penicillin; Z91.018 Allergy to other foods; Z91.048 Other nonmedicinal substance allergy status
CPT/HCPCS: 87081

== ENCOUNTER → 2021-02-12 | Outpatient (CLI) | payer MEDICARE, OTHER ==
[~2021-02-12] MED LIST changes: +HYDR-4226 PO
--- NOTE | 2021-02-12 13:48 | Diagnostic Imaging Report ---
INDICATION: Upper right quadrant pain. PROCEDURE: Ultrasound abdomen, right upper quadrant. TECHNIQUE: Multiple real-time grayscale images were obtained of the right upper quadrant of the abdomen in various projections. COMPARISON: CT from 07/18/2018. Gallbladder ultrasound from January 2014. FINDINGS: The pancreas is not seen due to bowel gas shadowing. Imaged portions of the aorta and IVC are unremarkable. The liver is mildly echogenic and appears mildly large measuring 19 cm in length. No focal hepatic lesions are seen and there is no biliary dilatation. The main portal vein is hepatopetal. The gallbladder wall is thin and no stones are seen. There is no pericholecystic fluid. Sonographic Hernandez's sign is negative. Common bile duct measures 4 mm in width. The right kidney measures 11 cm in length. There is no hydronephrosis or stone seen. No free fluid is seen. IMPRESSION: 1. Mild hepatomegaly and hepatic steatosis. 2. No cholelithiasis or cholecystitis. Dictated by: Dictated on workstation # [id number]
== END ==
LOC: RAD 09:23
PROVIDERS: ATTEND Internal Medicine
DX: K76.0 Fatty (change of) liver, not elsewhere classified (principal)
CPT/HCPCS: 76700

== ENCOUNTER 2023-02-20 15:56 | Inpatient (IN) | payer MEDICARE, OTHER ==
[2023-02-20] VITALS (9 sets, daily range): BP systolic 105–173; BP diastolic 56–95
[~2023-02-20] VITALS: Ht 182.9 cm; Wt 98.3 kg
--- NOTE | 2023-02-20 16:27 | ED Respiratory ---
General Chief Complaint: Respiratory Problems Stated Complaint: SOA Nursing Triage Note: PT AMB TO RM 7 WITH COMPLAINT OF SOA. STATES HAS WORSENED OVER THE LAST FEW SAYS. STATES HE FELT IT WAS ALLERGIES. Source: patient Exam Limitations: no limitations History of Present Illness Date Seen by Provider: Feb 20, 2023 Time Seen by Provider: 16:24 Initial Comments Patient is a 82-year-old male who presents ED with family for shortness of antonio ath. Shortness of breath over the past 2 weeks. Worse over the past 2 days. States he can only walk a few feet without feeling short of breath. According to son at bedside patient walked about 8 feet to the bathroom was gasping for air. States shortness of breath is with exertion. He feels okay while sitting down. Does have a history of allergies. Does use nasal spray. Currently on losartan for his blood pressure. Patient denies of any known cardiac disease. Denies history of COPD or asthma. Reports some mild intermittent cough. Denies any vomiting or diarrhea. He states he has intermittent abdominal discomfort with eating. Does take Nexium and his primary care physician thought this was secondary to acid reflux. Denies headache, chest pain, leg pain, dizziness, nausea, vomiting, diarrhea, sore throat, ear pain, leg swelling, history of CHF. Allergies and Home Medications Allergies Coded Allergies: chicken derived (Verified Allergy, Severe, Shortness of Breath, 02/20/23) chocolate flavor (Verified Allergy, Severe, Shortness of Breath, 02/20/23) tomato (Verified Allergy, Severe, 02/20/23) Penicillins (Unverified Adverse Reaction, Mild, PT ALLERGIC TO MOLDS SO HE AVOIDS PCN-NEVER HAD, 05/23/20) Patient Home Medication List Home Medication List Reviewed: Yes Esomeprazole Magnesium (Nexium 24Hr) 20 Mg Capsule.dr, 20 MG PO DAILY Prescribed by: VIJAY ESPINO on 02/20/231826 Last Action: Reviewed Fluticasone Propionate (Fluticasone Propionate) 16 Gm [place].susp, 1 SPRAY NSEACH DAILY, (Reported) Entered as Reported by: BRENDA GRACE on 07/19/18 152 Last Action: Reviewed Latanoprost (Xalatan) 0.005 % Drops, 2.5 ML OP HS Prescribed by: VIJAY ESPINO on 02/20/231823 Last Action: Reviewed Losartan/Hydrochlorothiazide (Losartan-Hctz 100-25 mg Tab) 1 Each Tablet, 1 TAB PO DAILY, (Reported) Entered as Reported by: BRENDA GRACE on 07/19/181521 Last Action: Reviewed Oxymetazoline HCl (Afrin) 0.05 % Mist, 15 ML NS PRN Prescribed by: VIJAY ESPINO on 02/20/231826 Last Action: Reviewed [Adore D] Prescribed by: VIJAY ESPINO on 02/20/231826 Last Action: Reviewed Discontinued Medications Hydrocodone/Acetaminophen (Hydrocodone/Acetaminophen 5 MG/325 MG TAB) 1 Each Tablet, 1 TAB PO Q6H Discontinued Reason: No Longer Taking Prescribed by: JAYESH ALEX on 05/23/20 1255 Last Action: Discontinued Travoprost (Travatan Z) 5 Ml Drops, 1 DROP OU HS, (Reported) Discontinued Reason: No Longer Taking Entered as Reported by: BRENDA GRACE on 07/19/181521 Last Action: Discontinued Review of Systems Review of Systems Constitutional: No chills, No diaphoresis, No malaise, No weakness EENTM: No blurred vision Respiratory: cough, short of breath Cardiovascular: No chest pain Gastrointestinal: No abdominal pain, No diarrhea, No nausea, No vomiting Genitourinary: No decreased output, No discharge, No dysuria, No frequency Musculoskeletal: No back pain, No joint pain Skin: No change in color, No change in hair/nails All Other Systems Reviewed Negative Unless Noted: Yes Past Shqxjud-Kczvbm-Xcrutw Hx Patient Social History Tobacco Use?: No Use of E-Cig and/or Vaping dev: No Substance use?: No Alcohol Use?: No Pt feels they are or have been: No Seasonal Allergies Seasonal Allergies: Yes Past Medical History Surgeries: Yes (kidney stones x4, hernia x3) Abdominal, Adenoidectomy, Appendectomy, Tonsillectomy Respiratory: Yes (allergies tammy. molds) Cardiac: Yes Hypertension Neurological: No Reproductive Disorders: No Sexually Transmitted Disease: No Genitourinary: Yes Kidney Stones Gastrointestinal: Yes Gastroesophageal Reflux Musculoskeletal: No Endocrine: No HEENT: Yes Glaucoma Hearing Impairment: Hard of Hearing Cancer: Yes Skin Psychosocial: No Integumentary: No Blood Disorders: No Physical Exam Vital Signs - First Documented 02/20/23 16:08 Temp 36.0 Pulse 45 Resp 20 B/P (MAP) 173/66 (101) O2 Delivery Room Air Capillary Refill : Height: 6'0.00" Weight: 227lbs. 0.0oz. 102.368105ex; 30.00 BMI Method:Stated General Appearance: WD/WN, no apparent distress Eyes: Bilateral Eye Normal Inspection, Bilateral Eye PERRL, Bilateral Eye EOMI HEENT: PERRL/EOMI, normal ENT inspection, TMs normal, pharynx normal Neck: non-tender, full range of motion, supple, normal inspection Respiratory: chest non-tender, lungs clear, normal breath sounds, no respiratory distress Cardiovascular: no edema, no gallop, no JVD, bradycardia Gastrointestinal: normal bowel sounds, non tender, soft, no organomegaly Extremities: normal range of motion, non-tender, normal inspection, no pedal edema Neurologic/Psychiatric: core composer feeder II-XII nml as tested, no motor/sensory deficits, alert, normal mood/affect Skin: normal color, warm/dry Progress/Results/Core Measures Suspected Sepsis SIRS Temperature: Pulse: 45 Respiratory Rate: 20 Laboratory Tests 02/20/23 16:30: White Blood Count 8.7 Blood Pressure 173 /66 Mean: 101 Laboratory Tests 02/20/23 16:30: Creatinine 1.24, INR Comment 1.1, Platelet Count 218, Total Bilirubin 0.5 Results/Orders Lab Results Laboratory Tests Test 02/20/23 16:30 Range/Units White Blood Count 8.7 4.3-11.0 10^3/uL Red Blood Count 4.76 4.30-5.52 10^6/uL Hemoglobin 14.1 13.3-17.7 g/dL Hematocrit 40 40-54 % Mean Corpuscular Volume 85 80-99 fL Mean Corpuscular Hemoglobin 30 25-34 pg Mean Corpuscular Hemoglobin Concent 35 32-36 g/dL Red Cell Distribution Width 13.1 10.0-14.5 % Platelet Count 218 130-400 10^3/uL Mean Platelet Volume 9.4 9.0-12.2 fL Immature Granulocyte % (Auto) 1 % Neutrophils (%) (Auto) 71 42-75 % Lymphocytes (%) (Auto) 17 12-44 % Monocytes (%) (Auto) 10 0-12 % Eosinophils (%) (Auto) 1 0-10 % Basophils (%) (Auto) 0 0-10 % Neutrophils # (Auto) 6.2 1.8-7.8 10^3/uL Lymphocytes # (Auto) 1.5 1.0-4.0 10^3/uL Monocytes # (Auto) 0.9 0.0-1.0 10^3/uL Eosinophils # (Auto) 0.1 0.0-0.3 10^3/uL Basophils # (Auto) 0.0 0.0-0.1 10^3/uL Immature Granulocyte # (Auto) 0.1 0.0-0.1 10^3/uL Prothrombin Time 14.3 12.2-14.7 SEC INR Comment 1.1 0.8-1.4 Activated Partial Thromboplast Time 33 24-35 SEC D-Dimer 0.46 0.00-0.49 UG/ML Sodium Level 141 135-145 MMOL/L Potassium Level 3.6 3.6-5.0 MMOL/L Chloride Level 108 H 98-107 MMOL/L Carbon Dioxide Level 22 21-32 MMOL/L Anion Gap 11 5-14 MMOL/L Blood Urea Nitrogen 29 H 7-18 MG/DL Creatinine 1.24 0.60-1.30 MG/DL Estimat Glomerular Filtration Rate 58 BUN/Creatinine Ratio 23 Glucose Level 167 H 70-105 MG/DL Calcium Level 9.2 8.5-10.1 MG/DL Corrected Calcium 9.2 8.5-10.1 MG/DL Magnesium Level 1.9 1.6-2.4 MG/DL Total Bilirubin 0.5 0.1-1.0 MG/DL Aspartate Amino Transf (AST/SGOT) 29 5-34 U/L Alanine Aminotransferase (ALT/SGPT) 42 0-55 U/L Alkaline Phosphatase 102 40-136 U/L Myoglobin 73.1 10.0-92.0 NG/ML Troponin I 0.090 H <0.028 NG/ML B-Type Natriuretic Peptide 287.5 H <100.0 PG/ML Total Protein 6.6 6.4-8.2 GM/DL Albumin 4.0 3.2-4.5 GM/DL Lipase 19 8-78 U/L My Orders Orders - JUANITA TREVIÑO Ekg Tracing (02/20/23 16:16) Cbc With Automated Diff (02/20/23 16:23) Magnesium (02/20/23 16:23) Chest 1 View, Ap/Pa Only (02/20/23 16:23) Comprehensive Metabolic Panel (02/20/23 16:23) Myoglobin Serum (02/20/23 16:23) Protime With Inr (02/20/23 16:23) Partial Thromboplastin Time (02/20/23 16:23) O2 (02/20/23 16:23) Monitor-Rhythm Ecg Trace Only (02/20/23 16:23) Ed Iv/Invasive Line Start (02/20/23 16:23) Lipase (02/20/23 16:23) Bnp Paul (02/20/23 16:23) Fibrin Degradation Products (02/20/23 16:23) Troponin I [place] (02/20/23 16:23) Thyroid Stimulating Hormone (02/20/23 17:12) Aspirin Chewable Tablet (Baby Aspirin Ch (02/20/23 17:30) Ceftriaxone Iv/Im (Rocephin Iv/Im) (02/20/23 17:20) Enoxaparin Injection (Lovenox Injection) (02/20/23 17:30) Furosemide Injection (Lasix Injection) (02/21/23 09:00) Potassium Chloride (Tablet) (K Dur Table (02/20/23 17:30) Vital Signs/I&O 02/20/23 16:08 Temp 36.0 Pulse 45 Resp 20 B/P (MAP) 173/66 (101) O2 Delivery Room Air Capillary Refill : Blood Pressure Mean: 101 ECG Comment Sinus bradycardia with first-degree AV block, 41 bpm, QRS duration 175 MS, QTc 478 MS Departure Communication (PCP) Reviewed previous ER visits, H&P, lab testing. Differential diagnosis of ACS, arrhythmia, CHF, pneumonia. Patient presents ED with dyspnea over the past 2 weeks. Worse over the past 2 days. States when he walks about 8 feet he gets short of breath. Patient on arrival bradycardia. This appears new. No chest pain abdominal pain. Intermittent cough. EKG showed sinus bradycardia with first-degree AV block. Due to the shortness of breath cardiac work-up was initiated and ordered. Does have some mild swelling bilateral lower extr emities. Denies of any leg pain. CBC, CMP grossly unremarkable. Glucose 167. Troponin 0.090, BNP 287. Patient with asymptomatic bradycardia. Does get symptomatic with ambulation but this is likely secondary to the CHF. Chest x- ray with cardiomegaly possible right infiltrate. Patient was given a dose of Rocephin. Due to the bradycardia elevated troponin patient was discussed with Dr. Roque cattle dehorner. Recommended full aspirin which was provided, Lovenox 40 mg subcu which was given, Lasix 40 mg IV, oral potassium 20 mill equivalent. Continue with 81 mg baby aspirin and Lovenox. Patient was discussed with Dr. Mcnair hospitalist who accepts patient. Patient is not hypoxic or febrile. Normal white blood count. Possible pneumonia however more concern for CHF and NSTEMI. Further cardiac evaluation is needed Impression Primary Impression: CHF (congestive heart failure) Additional Impressions: Pneumonia Bradycardia Disposition: ADMITTED INPATIENT Condition: Stable Admissions Decision to Admit Reason: Admit from ER (General) Decision to Admit/Date: Feb 20, 2023 Time/Decision to Admit Time: 17:24 Departure-Patient Inst. Referrals: BRIAN COULTER MD (PCP/Family) Primary Care Physician Scripts [Adore D] No Conflict Check Prov: ELLIOT MCNAIR MD 02/20/23 Oxymetazoline HCl (Afrin) 0.05 % Mist 15 ML NS PRN for 30 Days, EA Prov: ELLIOT MCNAIR MD 02/20/23 Esomeprazole Magnesium (Nexium 24Hr) 20 Mg Capsule. 20 MG PO DAILY for 30 Days, CAP Prov: ELLIOT MCNAIR MD 02/20/23 Latanoprost (Xalatan) 0.005 % Drops 2.5 ML OP HS for 30 Days, DROPS Prov: ELLIOT MCNAIR MD 02/20/23 JUANITA TREVIÑO Feb 20, 2023 16:27
[2023-02-20 16:37] LABS: BASOPHILS % (AUTO) 0 % (0-10); EOSINOPHILS # (AUTO) 0.1 10^3/uL (0.0-0.3); EOSINOPHILS % (AUTO) 1 % (0-10); HEMATOCRIT 40 % (40-54); HEMOGLOBIN 14.1 g/dL (13.3-17.7); LYMPHOCYTES # (AUTO) 1.5 10^3/uL (1.0-4.0); LYMPHOCYTES % (AUTO) 17 % (12-44); MEAN CORPUSCULAR HEMOGLOBIN 30 pg (25-34); MEAN CORPUSCULAR HGB CONC 35 g/dL (32-36); MEAN CORPUSCULAR VOLUME 85 fL (80-99); MEAN PLATELET VOLUME 9.4 fL (9.0-12.2); MONOCYTES # (AUTO) 0.9 10^3/uL (0.0-1.0); MONOCYTES % (AUTO) 10 % (0-12); NEUTROPHILS # (AUTO) 6.2 10^3/uL (1.8-7.8); NEUTROPHILS % (AUTO) 71 % (42-75); PLATELET COUNT 218 10^3/uL (130-400); WHITE BLOOD COUNT 8.7 10^3/uL (4.3-11.0)
[2023-02-20 16:47] LABS: POTASSIUM 3.6 MMOL/L (3.6-5.0)
[2023-02-20 16:48] LABS: CALCIUM 9.2 MG/DL (8.5-10.1)
[2023-02-20 16:49] LABS: TOTAL PROTEIN 6.6 GM/DL (6.4-8.2)
[2023-02-20 16:51] LABS: BILIRUBIN,TOTAL 0.5 MG/DL (0.1-1.0)
[2023-02-20 16:52] LABS: INR 1.1 (0.8-1.4); PROTHROMBIN TIME PATIENT 14.3 SEC (12.2-14.7)
[2023-02-20 16:53] LABS: CREATININE SERUM 1.24 MG/DL (0.60-1.30)
[2023-02-20 16:57] LABS: MAGNESIUM 1.9 MG/DL (1.6-2.4)
--- NOTE | 2023-02-20 17:12 | Diagnostic Imaging Report ---
INDICATION: Chest pain. Frontal chest obtained at 4:59 p.m. FINDINGS: There is cardiomegaly. There is patchy infiltrate in the right base. Left lung is clear. There is no pneumothorax or pleural fluid. IMPRESSION: Cardiomegaly with some patchy infiltrate in the right lung base, which may represent early pneumonia. Follow-up is recommended. Dictated by: Dictated on workstation # [id number]
[2023-02-20] MEDS ORDERED: cefTRIAXone IV/IM 1,000 MG in NS (IVPB) 50 ML IV STA (17:20)
[2023-02-20] MEDS ORDERED: KCL 20 MEQ TAB (K-DUR) PO ONE (17:30)
[2023-02-20] MEDS ORDERED: ENOXAPARIN 40 MG/0.4 ML (LOVENOX) SYR SC ONE (17:30)
[2023-02-20] MEDS ORDERED: ASPIRIN 81 MG CHEW (CHILDREN'S ASA) PO ONE (17:30)
[2023-02-20] MEDS ORDERED: LATA2.5D19 OP (18:24)
[2023-02-20] MEDS ORDERED: OXYM15MI4 NS (18:27)
[2023-02-20] MEDS ORDERED: ESOM20CA58 PO (18:27)
[2023-02-20] MEDS ORDERED: [UNRECOGNIZED DRUG - OTHER] (18:27)
[2023-02-20] MEDS ORDERED: ANTACID SUSP 30 ML UDC (MYLANTA) PO PRN (18:30)
[2023-02-20] MEDS ORDERED: MILK OF MAGNESIA 400 MG/5 ML 30 ML UDC PO PRN (18:30)
[2023-02-20] MEDS ORDERED: MELATONIN 3 MG TABLET PO PRN (18:30)
[2023-02-20] MEDS ORDERED: polyethylene glycoL POWDER 17 GM (MIRALAX) PACK PO PRN (18:30)
[2023-02-20] MEDS ORDERED: CALCIUM CARBONATE 500 MG (TUMS) TAB.CHEW PO PRN (18:30)
[2023-02-20] MEDS ORDERED: ONDANSETRON 4 MG (ZOFRAN) ORAL DISSOLVE TAB PO PRN (18:30)
[2023-02-20] MEDS ORDERED: BISACODYL 10 MG SUPP (DULCOLAX) PR PRN (18:30)
[2023-02-20] MEDS ORDERED: ONDANSETRON 4 MG/2 ML (SDV) Z0FRAN IV PRN (18:30)
[2023-02-20] MEDS ORDERED: hydrALAZINE (APESOLINE) 20 MG/ML VIAL IV PRN (18:30)
[2023-02-20] MEDS ORDERED: ACETAMINOPHEN 325 MG TABLET PO PRN (18:30)
[2023-02-20] MEDS ORDERED: LACTULOSE SYRUP 10GM/15ML (ENULOSE) 30ML UDC PO PRN (18:30)
[2023-02-20] MEDS ORDERED: NS IV 500 ML 500 ML IV PRN (18:30)
[2023-02-20] MEDS ORDERED: RT-ALBUTEROL SULF 2.5 MG/3 ML PRE-MIX VIAL INH PRN (19:00)
[2023-02-20] MEDS: DOCUSATE SODIUM 100 MG (COLACE) CAP PO SCH (20:09)
[2023-02-20] MEDS: SENNOSIDES 8.6 MG (SENOKOT) TAB PO SCH (20:09)
[2023-02-21] VITALS (13 sets, daily range): BP systolic 112–143; BP diastolic 43–63
[2023-02-21 05:22] LABS: BASOPHILS % (AUTO) 0 % (0-10); EOSINOPHILS # (AUTO) 0.1 10^3/uL (0.0-0.3); EOSINOPHILS % (AUTO) 2 % (0-10); HEMATOCRIT 37 % (40-54); LYMPHOCYTES # (AUTO) 1.6 10^3/uL (1.0-4.0); LYMPHOCYTES % (AUTO) 21 % (12-44); MEAN CORPUSCULAR HEMOGLOBIN 30 pg (25-34); MEAN CORPUSCULAR HGB CONC 35 g/dL (32-36); MEAN CORPUSCULAR VOLUME 85 fL (80-99); MEAN PLATELET VOLUME 9.8 fL (9.0-12.2); MONOCYTES # (AUTO) 0.8 10^3/uL (0.0-1.0); MONOCYTES % (AUTO) 11 % (0-12); NEUTROPHILS # (AUTO) 5.2 10^3/uL (1.8-7.8); NEUTROPHILS % (AUTO) 66 % (42-75); PLATELET COUNT 190 10^3/uL (130-400); WHITE BLOOD COUNT 7.8 10^3/uL (4.3-11.0)
[2023-02-21 05:38] LABS: CALCIUM 8.6 MG/DL (8.5-10.1); CREATININE SERUM 1.24 MG/DL (0.60-1.30); MAGNESIUM 2.1 MG/DL (1.6-2.4); POTASSIUM 3.9 MMOL/L (3.6-5.0)
[2023-02-21] MEDS: MAGNESIUM 1 GM/100 ML IVPB 100 ML IV SCH (05:44)
[2023-02-21] MEDS: POTASSIUM BICARB 20 MEQ (EFFER-K) TABLET PO SCH (05:44)
[2023-02-21] MEDS: POTASSIUM CL 10MEQ/50ML IVPB 50 ML IV SCH (05:44)
[2023-02-21] MEDS: KCL 20 MEQ TAB (K-DUR) PO SCH (06:00)
[2023-02-21] MEDS ORDERED: DOXYCYCLINE 100 MG (VIBRAMYCIN) TABLET PO SCH (07:00)
[2023-02-21] MEDS: FUROSEMIDE 40 MG (LASIX) TAB PO SCH (08:44)
[2023-02-21] MEDS: KCL 10 MEQ TAB (MICRO K) PO SCH (08:45)
[2023-02-21] MEDS: ASPIRIN 81 MG CHEW (CHILDREN'S ASA) PO SCH (08:45)
[2023-02-21] MEDS: SENNOSIDES 8.6 MG (SENOKOT) TAB PO SCH ×2 (08:46→20:08)
[2023-02-21] MEDS: DOCUSATE SODIUM 100 MG (COLACE) CAP PO SCH ×2 (08:46→20:29)
[2023-02-21] MEDS: LOSARTAN 100 MG (COZAAR) TABLET PO SCH (08:46)
[2023-02-21] MEDS: FUROSEMIDE 40 MG/4 ML INJ (LASIX) IVP SCH (08:46)
--- NOTE | 2023-02-21 12:21 | Consultation-Cardiology ---
HPI-Cardiology Cardiology Consultation: Date of Consultation 02/21/23 Time Seen by a Provider: 11:30 Date of Admission Attending Physician Sp Villasenor MD Admitting Physician Admitting Physician: Honey Quiles MD Attending Physician: Honey Quiles MD Consulting Physician SYEDA DELCID MD, MA, FACP, FACC, FSCAI, CCDS HPI: Chief Complaint: Shortness of breath 82 yo man with 4 - 5 days of increasing shortness of breath. Notes mild leg swelling. Has had one episode of diaphoresis on exertion. Denies cp. Denies palp or syncope. Review of Systems-Cardiology Review of Systems Constitutional: malaise, tiredness Eyes: No vision change Ears/Nose/Throat: No ear discharge, No nasal drainage, No recent hearing loss Respiratory: As described under HPI Cardiovascular: As described under HPI Gastrointestinal: No diarrhea, No nausea, No vomiting Genitourinary: No dysuria, No hematuria Musculoskeletal: No back pain, No joint pain Skin: No rash, No ulcerations Psychiatric/Neurological: No seizure, No focal weakness, No syncope Hematologic: No bleeding abnormalities All Other Systems Reviewed Negative Unless Noted: Yes LZO-Cldkmq-Nkmthw Hx Patient Social History Smoking Status: Never a Smoker 2nd Hand Smoke Exposure: No Have you traveled recently?: No Alcohol Use?: No Pt feels they are or have been: No Immunizations Up To Date Date of Pneumonia Vaccine: Jul 26, 2012 Past Medical History PMH As described under Assessment. Family Medical History Family Medical History: He does not report fam h/o early CAD Allergies and Home Medications Allergies Coded Allergies: chicken derived (Verified Allergy, Severe, Shortness of Breath, 02/20/23) chocolate flavor (Verified Allergy, Severe, Shortness of Breath, 02/20/23) tomato (Verified Allergy, Severe, 02/20/23) Penicillins (Unverified Adverse Reaction, Mild, PT ALLERGIC TO MOLDS SO HE AVOIDS PCN-NEVER HAD, 05/23/20) Patient Home Medication List Home Medication List Reviewed: Yes Esomeprazole Magnesium (Nexium 24Hr) 20 Mg Capsule.dr, 20 MG PO DAILY Prescribed by: VIJAY ESPINO on 02/20/23 439 Last Action: Reviewed Fluticasone Propionate (Fluticasone Propionate) 16 Gm [place].susp, 1 SPRAY NSEACH DAILY, (Reported) Entered as Reported by: BRENDA GRACE on 07/19/181521 Last Action: Reviewed Latanoprost (Xalatan) 0.005 % Drops, 2.5 ML OP HS Prescribed by: VIJAY ESPINO on 02/20/231823 Last Action: Reviewed Losartan/Hydrochlorothiazide (Losartan-Hctz 100-25 mg Tab) 1 Each Tablet, 1 TAB PO DAILY, (Reported) Entered as Reported by: BRENDA GRACE on 07/19/181521 Last Action: Reviewed Oxymetazoline HCl (Afrin) 0.05 % Mist, 15 ML NS PRN Prescribed by: VIJAY ESPINO on 02/20/231826 Last Action: Reviewed [Adore D] Prescribed by: VIJAY ESPINO on 02/20/231826 Last Action: Reviewed Discontinued Medications Hydrocodone/Acetaminophen (Hydrocodone/Acetaminophen 5 MG/325 MG TAB) 1 Each Tablet, 1 TAB PO Q6H Discontinued Reason: No Longer Taking Prescribed by: JAYESH ALEX on 05/23/20 1255 Last Action: Discontinued Travoprost (Travatan Z) 5 Ml Drops, 1 DROP OU HS, (Reported) Discontinued Reason: No Longer Taking Entered as Reported by: BRENDA GRACE on 07/19/181521 Last Action: Discontinued Physical Exam-Cardiology Physical Exam Vital Signs/I&O 02/21/23 02/21/23 02/21/23 02/21/23 01:00 01:00 02:00 03:00 Pulse 38 38 36 32 Resp 21 12 14 B/P (MAP) 135/53 (82) 126/57 (94) 112/43 (91) Pulse Ox 94 96 92 O2 Delivery Room Air Room Air Room Air 02/21/23 02/21/23 02/21/23 02/21/23 04:00 04:09 05:00 06:00 Temp 37.1 Pulse 35 35 38 Resp 15 9 22 B/P (MAP) 117/63 (103) 125/55 (90) 123/59 (87) Pulse Ox 97 96 94 O2 Delivery Room Air Room Air Room Air Room Air 02/21/23 02/21/23 02/21/23 02/21/23 07:00 07:58 08:00 08:24 Temp 36.2 Pulse 37 36 Resp 19 B/P (MAP) 137/58 (84) Pulse Ox 95 95 94 O2 Delivery Room Air Room Air Room Air 02/21/23 12:00 Temp 36.5 Pulse 43 Resp 21 B/P (MAP) 143/57 (85) Pulse Ox 95 O2 Delivery Room Air 02/21/23 00:00 Intake Total 150 ml Balance 150 ml Capillary Refill : Constitutional: AAO x 3, well-developed, well-nourished HEENT: EOMI, hearing is well preserved; No xanthelasmas are seen Neck: carotid pulses are 2 + bilaterally, with good upstrokes Respiratory: No accessory muscle use; chest expansion is symmetric, chest is bilaterally symmetric, other (fair to good, bilateral air entry) Cardiovascular: regular rate-rhythm, S1 and S2, systolic murmur (soft FRANCA and early diastolic murmur at card base) Gastrointestinal: No tender; soft; No guarding, No rebound; audible bowel sounds Extremities: No clubbing, No cyanosis, No significant edema Neurologic/Psychiatric: oriented x 3, other (moves all limbs equally) Skin: No rash on exposed areas, No ulcerations on exposed areas Data Review Labs Laboratory Tests 02/20/23 16:30: White Blood Count 8.7, Red Blood Count 4.76, Hemoglobin 14.1, Hematocrit 40, Mean Corpuscular Volume 85, Mean Corpuscular Hemoglobin 30, Mean Corpuscular Hemoglobin Concent 35, Red Cell Distribution Width 13.1, Platelet Count 218, Mean Platelet Volume 9.4, Immature Granulocyte % (Auto) 1, Neutrophils (%) (Auto) 71, Lymphocytes (%) (Auto) 17, Monocytes (%) (Auto) 10, Eosinophils (%) (Auto) 1, Basophils (%) (Auto) 0, Neutrophils # (Auto) 6.2, Lymphocytes # (Auto) 1.5, Monocytes # (Auto) 0.9, Eosinophils # (Auto) 0.1, Basophils # (Auto) 0.0, Immature Granulocyte # (Auto) 0.1, Prothrombin Time 14.3, INR Comment 1.1, Activated Partial Thromboplast Time 33, D-Dimer 0.46, Sodium Level 141, Potassium Level 3.6, Chloride Level 108H, Carbon Dioxide Level 22, Anion Gap 11, Blood Urea Nitrogen 29H, Creatinine 1.24, Estimat Glomerular Filtration Rate 58, BUN/Creatinine Ratio 23, Glucose Level 167H, Calcium Level 9.2, Corrected Calcium 9.2, Magnesium Level 1.9, Total Bilirubin 0.5, Aspartate Amino Transf (AST/SGOT) 29, Alanine Aminotransferase (ALT/SGPT) 42, Alkaline Phosphatase 102, Myoglobin 73.1, Troponin I 0.090H, B-Type Natriuretic Peptide 287.5H, Total Protein 6.6, Albumin 4.0, Lipase 19, Procalcitonin 0.05, Thyroid Stimulating Hormone (TSH) 2.66 02/21/23 04:58: White Blood Count 7.8, Red Blood Count 4.38, Hemoglobin 13.0L, Hematocrit 37L, Mean Corpuscular Volume 85, Mean Corpuscular Hemoglobin 30, Mean Corpuscular Hemoglobin Concent 35, Red Cell Distribution Width 13.1, Platelet Count 190, Mean Platelet Volume 9.8, Immature Granulocyte % (Auto) 1, Neutrophils (%) (Auto) 66, Lymphocytes (%) (Auto) 21, Monocytes (%) (Auto) 11, Eosinophils (%) (Auto) 2, Basophils (%) (Auto) 0, Neutrophils # (Auto) 5.2, Lymphocytes # (Auto) 1.6, Monocytes # (Auto) 0.8, Eosinophils # (Auto) 0.1, Basophils # (Auto) 0.0, Immature Granulocyte # (Auto) 0.1, Sodium Level 142, Potassium Level 3.9, Chloride Level 108H, Carbon Dioxide Level 24, Anion Gap 10, Blood Urea Nitrogen 27H, Creatinine 1.24, Estimat Glomerular Filtration Rate 58, BUN/Creatinine Ratio 22, Glucose Level 100, Calcium Level 8.6, Magnesium Level 2.1, Troponin I 0.119H, Procalcitonin 0.04 Laboratory Tests 02/20/23 16:30 02/21/23 04:58 A/P-Cardiology Assessment/Admission Diagnosis Ac diastolic CHF - Echo on 02/21/23: The cavity size is normal. There is moderate to severe concentric hypertrophy. Systolic function is normal. LVEF 60-65%. There were no regional wall motion abnormalities identified. Mild enlargement of right heart. Mild to moderate aortic regurgitation. PASP 40-45 mmHg - D- dimer normal at presentation Symptomatic sinus bradycardia - ECG on 02/20/23: sinus radha at 41 bpm, 1st deg AV block, RBBB - TSH normal at presentation Mildly elevated troponin - NSTEMI vs type 2 CO due to CHF H/o hypertension Discussion and Recomendations * Diuretics for CHF * Continue losartan for bp * Monitor labs * Card cath recommended. If no ischemic basis for bradycardia found, then consider permanent pacemaker if bradycardia persists. Discussed pros and cons of all of this with the patient. He understands and is considering his options SYEDA DELCID MD [facility] Feb 21, 2023 12:21
--- NOTE | 2023-02-21 13:15 | History & Physical-Hospitalist ---
RAJESH QUINN 02/21/23 1315: History of Present Illness HPI/Chief Complaint Shmuel Chawla is a 82yo male presenting due to shortness of breath that begun two days ago. Pt states that he has an associated cough and worsening shortness of breath while laying down to go to sleep which causes him to change locations and sleep upright in a chair w/ two pillows. When asked if he thought that he could walk a flight of stairs, pt states no. Pt stated that he has noticed some indentions on his ankles that has been occurring for awhile. Pt states he didn't sleep well last night after being admitted, but his shortness of breath has improved since being admitted. Date Seen 02/21/23 Attending Physician Sp Villasenor MD PCP Admitting Physician: Elliot Mcnair MD Attending Physician: Elliot Mcnair MD Referring Physician Date of Admission Feb 20, 2023 at 18:03 Home Medications & Allergies Home Medications Reviewed patient Home Medication Reconciliation performed by pharmacy medication reconciliations senior laboratory technician and/or nursing. Patients Allergies have been reviewed. Allergies Allergies Coded Allergies chicken derived (Verified Allergy, Severe, Shortness of Breath, 02/20/23) chocolate flavor (Verified Allergy, Severe, Shortness of Breath, 02/20/23) tomato (Verified Allergy, Severe, 02/20/23) Penicillins (Unverified Adverse Reaction, Mild, PT ALLERGIC TO MOLDS SO HE AVOIDS PCN-NEVER HAD, 05/23/20) Past Yptmjpa-Tlksdc-Uyscma Hx Patient Social History Tobacco Use?: No Smoking Status: Never a Smoker Smokeless Tobacco Frequency: Never a User Use of E-Cig and/or Vaping dev: No Substance use?: No Alcohol Use?: No Pt feels they are or have been: No Immunizations Up To Date Tetanus Booster (TDap): Unknown Date of Pneumonia Vaccine: Jul 26, 2012 Seasonal Allergies Seasonal Allergies: Yes Current Status Advance Directives: No Communicates: Verbally Primary Language: Israeli Preferred Spoken Language: Israeli Is interpretation needed?: No Sensory deficits: Hearing impairment Implanted or Applied Medical D: None Past Medical History Surgeries: Abdominal, Adenoidectomy, Appendectomy, Tonsillectomy Hypertension Sexually Transmitted Disease: No Kidney Stones Gastroesophageal Reflux Glaucoma Hearing Impairment: Hard of Hearing Skin Blood Disorders: No Review of Systems Constitutional: No chills, No fever Respiratory: cough, dyspnea on exertion, phlegm, short of breath Cardiovascular: No chest pain, No syncope Gastrointestinal: No abdominal pain, No diarrhea, No nausea, No vomiting Physical Exam Physical Exam Vital Signs Vital Signs - First Documented 02/20/23 02/20/23 02/20/23 16:08 17:58 18:41 Temp 36.0 Pulse 45 Resp 20 B/P (MAP) 173/66 (101) Pulse Ox 99 O2 Delivery Room Air FiO2 21 Capillary Refill : Height, Weight, BMI Height: 6'0.00" Weight: 227lbs. 0.0oz. 102.299602kj; 30.70 BMI Method:Stated General Appearance: No Apparent Distress Respiratory: Chest Non Tender, Lungs Clear, Normal Breath Sounds, No Accessory Muscle Use, No Respiratory Distress Cardiovascular: Regular Rate, Rhythm, No Murmur, Normal Peripheral Pulses Gastrointestinal: Normal Bowel Sounds, Soft, Tenderness Extremity: Non Tender, No Calf Tenderness, Pedal Edema, Swelling Neurologic/Psychiatric: Alert, Oriented x3 Skin: Normal Color, Warm/Dry Results Results/Procedures Labs Laboratory Tests 02/20/23 16:30 02/21/23 04:58 Patient resulted labs reviewed. Imaging CHEST 1 VIEW, AP/PA ONLY INDICATION: Chest pain. Frontal chest obtained at 4:59 p.m. FINDINGS: There is cardiomegaly. There is patchy infiltrate in the right base. Left lung is clear. There is no pneumothorax or pleural fluid. IMPRESSION: Cardiomegaly with some patchy infiltrate in the right lung base, which may represent early pneumonia. Follow-up is recommended. Assessment/Plan Assessment and Plan Shmuel Chawla is a 82yo male presenting with Acute CHF Exacerbation. Acute CHF Exacerbation CXR - Cardiomegaly Patchy Infiltrate R. Lung Base; Suspicious for Early Pneumonia Elevated BNP Normal Procalcitonin; Likely not Pneumonia; Normal WBC and Temperature IV Lasix NSTEMI Cardiology Following Troponin: Elevated; Increased from yesterday ECHO 02/21/23: Moderate to severe concentric hypertrophy. Systolic function is normal. LVEF 60-65%. Mild enlargement of right heart. Mild to moderate aortic regurgitation. PASP 40-45 mmHg Sinus Bradycardia Normal TSH ECG: Sinus Bradycardia with 1st degree AV block; RBBB HTN Losartan ELLIOT MCNAIR MD 02/21/231951: History of Present Illness Source: patient Exam Limitations: no limitations Time Seen by a Provider: 10:25 Past Dkfjcba-Uzsygv-Tbjocy Hx Past Medical History Hypertension Family Medical History Other Conditions/Hx (Ele's disease-daughter) Results Results/Procedures Imaging: Reviewed Imaging Report Assessment/Plan Admission Diagnosis Acute HFpEF Admission Status: Inpatient Order (span 2 midnights) Reason for Inpatient Admission: Heart failure IV diuresis Assessment and Plan Admitted with acute CHF exacerbation. Cardiology following. Echo shows normal EF. Bradycardic in the 30s. Recommending left heart cath, possible pacemaker placement. Diagnosis/Problems Diagnosis/Problems (1) Acute heart failure with preserved ejection fraction (HFpEF) Status: Acute (2) Sinus bradycardia Status: Acute (3) NSTEMI (non-ST elevation myocardial infarction) Status: Acute (4) HTN (hypertension) Status: Acute (5) Pulmonary hypertension Status: Acute Supervisory-Addendum Brief Verification & Attestation Participated in pt care: history, MDM, physical Personally performed: exam, history, MDM, supervision of care Care discussed with: Medical Student Procedures: n/a Results interpretation: Verified all documentation A medical student performed and documented this service in my presence. I reviewed and verified all information documented by the medical student and made modifications to such information, when appropriate. I personally performed the physical exam and medical decision making. RAJESH QUINN Feb 21, 2023 13:15 ELLIOT MCNAIR MD Feb 21, 2023 19:52
[2023-02-21] MEDS: ENOXAPARIN 40 MG/0.4 ML (LOVENOX) SYR SC SCH (17:35)
[2023-02-21] MEDS ORDERED: cefTRIAXone IV/IM 1,000 MG in NS (IVPB) 50 ML IV SCH (18:00)
[2023-02-22] VITALS: BP 120/57
[2023-02-22 04:00] VITALS: BP 125/50
[2023-02-22 04:51] LABS: BASOPHILS % (AUTO) 0 % (0-10); EOSINOPHILS # (AUTO) 0.2 10^3/uL (0.0-0.3); EOSINOPHILS % (AUTO) 2 % (0-10); HEMATOCRIT 39 % (40-54); HEMOGLOBIN 13.6 g/dL (13.3-17.7); LYMPHOCYTES # (AUTO) 1.6 10^3/uL (1.0-4.0); LYMPHOCYTES % (AUTO) 19 % (12-44); MEAN CORPUSCULAR HEMOGLOBIN 30 pg (25-34); MEAN CORPUSCULAR HGB CONC 35 g/dL (32-36); MEAN CORPUSCULAR VOLUME 85 fL (80-99); MEAN PLATELET VOLUME 9.6 fL (9.0-12.2); MONOCYTES % (AUTO) 12 % (0-12); NEUTROPHILS # (AUTO) 5.6 10^3/uL (1.8-7.8); NEUTROPHILS % (AUTO) 66 % (42-75); PLATELET COUNT 207 10^3/uL (130-400); WHITE BLOOD COUNT 8.5 10^3/uL (4.3-11.0)
[2023-02-22 04:57] LABS: CALCIUM 8.9 MG/DL (8.5-10.1)
[2023-02-22] MEDS: KCL 20 MEQ TAB (K-DUR) PO SCH (05:00)
[2023-02-22] MEDS: POTASSIUM BICARB 20 MEQ (EFFER-K) TABLET PO SCH (05:00)
[2023-02-22] MEDS: POTASSIUM CL 10MEQ/50ML IVPB 50 ML IV SCH (05:00)
[2023-02-22 05:01] LABS: CREATININE SERUM 1.21 MG/DL (0.60-1.30)
[2023-02-22 05:03] LABS: MAGNESIUM 1.8 MG/DL (1.6-2.4)
[2023-02-22] MEDS: MAGNESIUM 1 GM/100 ML IVPB 100 ML IV SCH ×3 (05:06→06:00)
[2023-02-22 07:32] VITALS: BP 111/89
[2023-02-22] MEDS: DOCUSATE SODIUM 100 MG (COLACE) CAP PO SCH ×2 (08:24→21:51)
[2023-02-22] MEDS: LOSARTAN 100 MG (COZAAR) TABLET PO SCH (08:24)
[2023-02-22] MEDS: ASPIRIN 81 MG CHEW (CHILDREN'S ASA) PO SCH (08:24)
[2023-02-22] MEDS: SENNOSIDES 8.6 MG (SENOKOT) TAB PO SCH ×2 (08:24→21:52)
[2023-02-22] MEDS: FUROSEMIDE 40 MG/4 ML INJ (LASIX) IVP SCH (08:24)
[2023-02-22] MEDS: FUROSEMIDE 40 MG (LASIX) TAB PO SCH (08:24)
[2023-02-22] MEDS: KCL 10 MEQ TAB (MICRO K) PO SCH (08:24)
[2023-02-22] MEDS ORDERED: LIDOCAINE 1% INJ 20 ML VIAL ONE (10:02)
[2023-02-22] MEDS ORDERED: HEParin (CATH LAB) 2,000 ML IV ONE (10:03)
[2023-02-22] MEDS ORDERED: NS IV 1000 ML 1,000 ML ONE (10:03)
[2023-02-22] MEDS ORDERED: MIDAZOLAM 5 MG/5 ML (VERSED) VIAL ONE (10:13)
[2023-02-22] MEDS ORDERED: fentaNYL INJ 100 MCG/2 ML AMP ONE (10:13)
[2023-02-22] MEDS ORDERED: NITRO DRIP 25000 MCG/D5W 250 ML IV ONE (10:45)
[2023-02-22] MEDS ORDERED: VERAPAMIL 5 MG/2 ML (CALAN) VIAL IV ONE (10:45)
[2023-02-22] MEDS ORDERED: HEParin 1000 UNIT/ML (10ML VIAL) FOR BOLUS ONE (10:45)
[2023-02-22] MEDS ORDERED: ATROPINE INJECTION 1 MG/10 ML SYR (ABBOTT) ONE (10:52)
--- NOTE | 2023-02-22 11:29 | Progress Note - Cardiology ---
Cardiology SOAP Progress Note Subjective: Gen weakness Shortness of breath modestly improved (not resolved) No cp or palp or syncope No n/v/d Objective: I&O/Vital Signs 02/22/23 02/22/23 02/22/23 02/22/23 00:00 00:00 01:00 04:00 Temp 36.8 Pulse 35 36 36 Resp 17 13 B/P (MAP) 120/57 (78) 125/50 (75) O2 Delivery Room Air Room Air 02/22/23 02/22/23 02/22/23 02/22/23 04:30 07:00 07:00 07:32 Temp 37.0 36.2 Pulse 36 40 36 Resp 19 B/P (MAP) 111/89 (96) Pulse Ox 96 02/22/23 02/22/23 07:32 08:00 Pulse Ox 95 95 O2 Delivery Room Air Room Air 02/22/23 00:00 Intake Total 700 ml Output Total 1300 ml Balance -600 ml Weight (Pounds): 227 Weight (Ounces): 0.0 Weight (Calculated Kilograms): 102.056866 Constitutional: AAO x 3, well-developed, well-nourished Respiratory: No accessory muscle use; chest expansion is symmetric, chest is bilaterally symmetric, other (fair to good, bilateral air entry) Cardiovascular: regular rate-rhythm, S1 and S2, systolic murmur (soft FRANCA and early diastolic murmur at card base) Gastrointestional: No tender; soft; No guarding, No rebound; audible bowel sounds Extremities: swelling (mild swelling of legs); No clubbing, No cyanosis Neurologic/Psychiatric: oriented x 3, other (moves all limbs) Skin: No rash on exposed areas, No ulcerations on exposed areas Results/Procedures: Labs Laboratory Tests 02/22/23 04:35: White Blood Count 8.5, Red Blood Count 4.59, Hemoglobin 13.6, Hematocrit 39L, Mean Corpuscular Volume 85, Mean Corpuscular Hemoglobin 30, Mean Corpuscular Hemoglobin Concent 35, Red Cell Distribution Width 13.1, Platelet Count 207, Mean Platelet Volume 9.6, Immature Granulocyte % (Auto) 1, Neutrophils (%) (Auto) 66, Lymphocytes (%) (Auto) 19, Monocytes (%) (Auto) 12, Eosinophils (%) (Auto) 2, Basophils (%) (Auto) 0, Neutrophils # (Auto) 5.6, Lymphocytes # (Auto) 1.6, Monocytes # (Auto) 1.0, Eosinophils # (Auto) 0.2, Basophils # (Auto) 0.0, Immature Granulocyte # (Auto) 0.1, Sodium Level 145, Potassium Level 4.0, Chloride Level 110H, Carbon Dioxide Level 23, Anion Gap 12, Blood Urea Nitrogen 30H, Creatinine 1.21, Estimat Glomerular Filtration Rate 60, BUN/Creatinine Ratio 25, Glucose Level 101, Calcium Level 8.9, Magnesium Level 1.8 A/P: Assessment: Ac diastolic CHF - Echo on 02/21/23: The cavity size is normal. There is moderate to severe concentric hypertrophy. Systolic function is normal. LVEF 60-65%. There were no regional wall motion abnormalities identified. Mild enlargement of right heart. Mild to moderate aortic regurgitation. PASP 40-45 mmHg - D- dimer normal at presentation Symptomatic sinus bradycardia and chronotropic incompetence - ECG on 02/20/23: sinus radha at 41 bpm, 1st deg AV block, RBBB - TSH normal at presentation Mildly elevated troponin - Type 2 OR due to CHF and bradycardia - Card cath on 02/22/23: no significant CAD, LVEDP 20 mmHg H/o hypertension Plan: * Diuretics for CHF * Continue losartan for bp * Monitor labs * Card cath results discussed * Permanent pacemaker tomorrow if bradycardia persists. Discussed pros and cons of all of this with the patient. He understands and is considering his options SYEDA DELCID MD [facility]S Feb 22, 2023 11:29
--- NOTE | 2023-02-22 11:31 | Cardiac Procedure Note-CS/ASA ---
Pre-Procedure Note Pre-Op Procedure Note Date of Available H&P: Feb 21, 2023 Date H&P Reviewed: Feb 22, 2023 Time H&P Reviewed: 10:45 History & Physical: H&P Reviewed, No changes noted Moderate Sedation PreProcedure ASA Score 3 Airway Lungs Heart ASA score ASA 1: a normal healthy patient ASA 2: a patient with a mild systemic disease (mid diabetes, controlled hypertension, obesity ASA 3: a patient with a severe systemic disease that limits activity (angina, COPD, prior Myocardial infarction) ASA 4: a patient with an incapacitating disease that is a constant threat to life (CHF, renal failure) ASA 5: a moribund patient not expected to survive 24 hrs. (ruptured aneurysm) ASA 6: a declared brain- patient whose organs are being harvested. For emergent operations, add the letter E after the classification Mallampati Classification Grade 2 Sedation Plan Analgesia, Amnesia, Plan communicated to team members The patient is an appropriate candidate to undergo the planned procedure, sedation, and anesthesia. The patient immediately re-assessed prior to indication. SYEDA DELCID MD FACP [facility]S Feb 22, 2023 11:31
--- NOTE | 2023-02-22 11:37 | Cardiac Cath Report ---
CARDIAC CATHETERIZATION DATE OF PROCEDURE: 02-22-23 INDICATION: Elevated troponin, bradycardia, acute diastolic CHF HISTORY: The patient is a 82 year old male with elevated troponin, bradycardia, acute diastolic CHF PROCEDURES PERFORMED: 1. Cor angio; 2. LHC PROCEDURE DESCRIPTION: After informed consent and in the fasting state, left heart catheterization was performed through the R radial artery utilizing a 5 Sudanese system by percutaneous approach. TIG cath for cor angio. Pig tail for LHC. LV gram not done. Angiography of the R brachiocephalic trunk done to guide wire advancement of ascending aorta. All catheters were exchanged over a guidewire. HEMODYNAMICS: LVEDP 20 mmHg CORONARY ANGIOGRAPHY: Left main coronary artery: Ok Left anterior descending coronary artery: Ok Left circumflex coronary artery: Ok Right coronary artery: Dominant, Ok IMPRESSION: 1. No angiographically significant CAD 2. LVEDP 20 mmHg SYEDA DELCID MD FACP [facility] Feb 22, 2023 11:37
--- NOTE | 2023-02-22 15:01 | Progress Note - Hospitalist ---
RAJESH QUINN 02/22/23 1501: Subjective HPI/CC On Admission Date Seen by Provider: Feb 22, 2023 Shmuel Chawla is a 82yo male presenting due to shortness of breath that begun two days ago. Pt states that he has an associated cough and worsening shortness of breath while laying down to go to sleep which causes him to change locations and sleep upright in a chair w/ two pillows. When asked if he thought that he could walk a flight of stairs, pt states no. Pt stated that he has noticed some indentions on his ankles that has been occurring for awhile. Pt states he didn't sleep well last night after being admitted, but his shortness of breath has improved since being admitted. Subjective/Events-last exam Pt was doing well this morning. Pt was scheduled for laboratory administrative director this morning at 11am. Pt has been NPO. Pt's Urine rate is within normal limits at 0.6cc/kg/hr for the last 24hr. Review of Systems General: No Chills Pulmonary: No Dyspnea, No Cough Cardiovascular: No: Chest Pain, Palpitations Gastrointestinal: No: Nausea, Vomiting, Abdominal Pain, Diarrhea Objective Exam Vital Signs Vital Signs Date Time Temp Pulse Resp B/P (MAP) Pulse Ox O2 Delivery O2 Flow Rate FiO2 02/22/23 13:33 34 02/22/23 08:00 95 Room Air 02/22/23 07:32 36.2 19 111/89 (96) 02/20/23 18:41 21 Capillary Refill : General Appearance: No Apparent Distress Respiratory: Chest Non Tender, Lungs Clear, Normal Breath Sounds Cardiovascular: Regular Rate, Rhythm, No Murmur, Normal Peripheral Pulses Gastrointestinal: Normal Bowel Sounds, Non Tender, Soft Neurologic/Psychiatric: Alert, Oriented x3, No Motor/Sensory Deficits, Normal Mood/Affect Skin: Normal Color, Warm/Dry Results/Procedures Lab Laboratory Tests 02/22/23 04:35 Patient resulted labs reviewed. Imaging: Reviewed Imaging Report Assessment/Plan Assessment and Plan Assess & Plan/Chief Complaint Shmuel Chawla is a 82yo male presenting with Acute CHF Exacerbation. Acute CHF Exacerbation CXR - Cardiomegaly Patchy Infiltrate R. Lung Base; Suspicious for Early Pneumonia Elevated BNP Normal Procalcitonin; Likely not Pneumonia; Normal WBC and Temperature Pt's edema has improved Continue IV Lasix NSTEMI Cardiology Following Troponin: Elevated; Increased from yesterday ECHO 02/21/23: Moderate to severe concentric hypertrophy. Systolic function is normal. LVEF 60-65%. Mild enlargement of right heart. Mild to moderate aortic regurgitation. PASP 40-45 mmHg Sinus Bradycardia Normal TSH ECG: Sinus Bradycardia with 1st degree AV block; RBBB Environmental Field Services Technician Today; If negative pt will likely undergo a pacemaker to control rate; If positive pt will likely get stent Negative Environmental Field Services Technician Pacemaker tomorrow HTN Continue Losartan ELLIOT MCNAIR MD 02/22/23 1856: Subjective HPI/CC On Admission Time Seen by Provider: 12:00 Assessment/Plan Assessment and Plan Assess & Plan/Chief Complaint Heart cath with no evidence of significant CAD. Remains bradycardic. Cardiology planning for pacemaker placement tomorrow. Diagnosis/Problems Diagnosis/Problems (1) Bradycardia Status: Acute (2) Pulmonary hypertension Status: Acute (3) HTN (hypertension) Status: Acute (4) Acute heart failure with preserved ejection fraction (HFpEF) Status: Acute (5) NSTEMI (non-ST elevation myocardial infarction) Status: Acute Supervisory-Addendum Brief Verification & Attestation Participated in pt care: history, MDM, physical Personally performed: exam, history, MDM, supervision of care Care discussed with: Medical Student Procedures: n/a Results interpretation: Verified all documentation A medical student performed and documented this service in my presence. I reviewed and verified all information documented by the medical student and made modifications to such information, when appropriate. I personally performed the physical exam and medical decision making. RAJESH QUINN Feb 22, 2023 15:01 ELLIOT MCNAIR MD Feb 22, 2023 18:56
[2023-02-22 16:00] VITALS: BP 110/88
[2023-02-22] MEDS: ENOXAPARIN 40 MG/0.4 ML (LOVENOX) SYR SC SCH (18:51)
[2023-02-22 20:00] VITALS: BP 130/69
[2023-02-23] VITALS (16 sets, daily range): BP systolic 104–147; BP diastolic 56–100
[2023-02-23 05:13] LABS: BASOPHILS % (AUTO) 0 % (0-10); EOSINOPHILS # (AUTO) 0.2 10^3/uL (0.0-0.3); EOSINOPHILS % (AUTO) 2 % (0-10); HEMATOCRIT 40 % (40-54); LYMPHOCYTES # (AUTO) 1.5 10^3/uL (1.0-4.0); LYMPHOCYTES % (AUTO) 18 % (12-44); MEAN CORPUSCULAR HEMOGLOBIN 30 pg (25-34); MEAN CORPUSCULAR HGB CONC 35 g/dL (32-36); MEAN CORPUSCULAR VOLUME 85 fL (80-99); MEAN PLATELET VOLUME 9.5 fL (9.0-12.2); MONOCYTES # (AUTO) 0.9 10^3/uL (0.0-1.0); MONOCYTES % (AUTO) 11 % (0-12); NEUTROPHILS # (AUTO) 5.8 10^3/uL (1.8-7.8); NEUTROPHILS % (AUTO) 68 % (42-75); PLATELET COUNT 224 10^3/uL (130-400); WHITE BLOOD COUNT 8.4 10^3/uL (4.3-11.0)
[2023-02-23 05:30] LABS: CALCIUM 8.7 MG/DL (8.5-10.1); CREATININE SERUM 1.28 MG/DL (0.60-1.30); MAGNESIUM 2.3 MG/DL (1.6-2.4); POTASSIUM 3.9 MMOL/L (3.6-5.0)
[2023-02-23] MEDS: MAGNESIUM 1 GM/100 ML IVPB 100 ML IV SCH (07:00)
[2023-02-23] MEDS: POTASSIUM BICARB 20 MEQ (EFFER-K) TABLET PO SCH (07:00)
[2023-02-23] MEDS: KCL 20 MEQ TAB (K-DUR) PO SCH (08:27)
[2023-02-23] MEDS: POTASSIUM CL 10MEQ/50ML IVPB 50 ML IV SCH ×3 (08:27→11:49)
[2023-02-23] MEDS ORDERED: LATA2.5D19 OU (08:59)
[2023-02-23] MEDS ORDERED: CYAN100015 SL (08:59)
[2023-02-23] MEDS ORDERED: ASCO500T71 PO (08:59)
[2023-02-23] MEDS ORDERED: OXYM15MI4 (08:59)
[2023-02-23] MEDS ORDERED: CALC420T7 PO (08:59)
[2023-02-23] MEDS: DOCUSATE SODIUM 100 MG (COLACE) CAP PO SCH ×2 (09:00→21:00)
[2023-02-23] MEDS: SENNOSIDES 8.6 MG (SENOKOT) TAB PO SCH ×2 (09:00→21:00)
[2023-02-23] MEDS: LOSARTAN 100 MG (COZAAR) TABLET PO SCH (09:00)
[2023-02-23] MEDS: FUROSEMIDE 40 MG/4 ML INJ (LASIX) IVP SCH (09:00)
[2023-02-23] MEDS: KCL 10 MEQ TAB (MICRO K) PO SCH (09:00)
[2023-02-23] MEDS: ASPIRIN 81 MG CHEW (CHILDREN'S ASA) PO SCH (09:00)
[2023-02-23] MEDS: FUROSEMIDE 40 MG (LASIX) TAB PO SCH (09:00)
[2023-02-23] MEDS ORDERED: ceFAZolin INJECTION 0 MG ONE (10:10)
[2023-02-23] MEDS ORDERED: LIDOCAINE 1% INJ 20 ML VIAL ONE (10:10)
[2023-02-23] MEDS ORDERED: HEParin (CATH LAB) 1,000 ML IV ONE (10:11)
[2023-02-23] MEDS ORDERED: NS IV 1000 ML 2,000 ML ONE (10:11)
[2023-02-23] MEDS ORDERED: NORMAL SALINE 250 ML ONE (10:14)
[2023-02-23] MEDS ORDERED: VANCOMYCIN 1000 MG/VIAL ONE (10:14)
--- NOTE | 2023-02-23 11:36 | Progress Note - Hospitalist ---
Subjective HPI/CC On Admission Date Seen by Provider: February 23, 2023 Shmuel Chawla is a 82yo male presenting due to shortness of breath that begun two days ago. Pt states that he has an associated cough and worsening shortness of breath while laying down to go to sleep which causes him to change locations and sleep upright in a chair w/ two pillows. When asked if he thought that he could walk a flight of stairs, pt states no. Pt stated that he has noticed some indentions on his ankles that has been occurring for awhile. Pt states he didn't sleep well last night after being admitted, but his shortness of breath has improved since being admitted. Subjective/Events-last exam Pt reports feeling disappointed. He states he was told that the pacemaker may not give him his energy. He is still agreeable to it after discussion of risks of bradycardia. Objective Exam Vital Signs Vital Signs Date Time Temp Pulse Resp B/P (MAP) Pulse Ox O2 Delivery O2 Flow Rate FiO2 02/23/23 08:52 97 Room Air 02/23/23 08:00 36.1 36 16 104/92 (96) 02/20/23 18:41 21 Capillary Refill : General Appearance: No Apparent Distress Respiratory: Lungs Clear, No Accessory Muscle Use Cardiovascular: Bradycardia Neurologic/Psychiatric: Alert, Oriented x3 Results/Procedures Lab Laboratory Tests 02/23/23 05:02 Patient resulted labs reviewed. Imaging: Reviewed Imaging Report Assessment/Plan Assessment and Plan Assess & Plan/Chief Complaint Acute CHF Exacerbation NSTEMI Bradycardia HTN Cardiology consulted, appreciate recs Cath done yesterday with no intervention Continue IV Lasix, negative 2800 yesterday ECHO 02/21/23: LVEF 60-65%. Mild enlargement of right heart. Mild to moderate aortic regurgitation. PASP 40-45 mmHg Planning for pacemaker today, HR down to the 20s overnight per patient report Continue Losartan hold HCTZ as he is already getting lasix TAMRA MCALLISTER MD February 23, 2023 11:36
[2023-02-23] MEDS ORDERED: fentaNYL INJ 100 MCG/2 ML AMP ONE ×2 (13:48→16:35)
[2023-02-23] MEDS ORDERED: MIDAZOLAM 5 MG/5 ML (VERSED) VIAL ONE ×2 (13:48→16:35)
--- NOTE | 2023-02-23 15:01 | Discharge Inst-Simple/Standard ---
Discharge Inst-Standard Patient Instructions/Follow Up Plan of Care/Instructions/FU: Please continue to take your medications as written. Please follow up with your primary care doctor to follow up this hospital stay. Activity as Tolerated: Yes Discharge Diet: No Restrictions Return to The Hospital For: Chest pain, shortness of breath, fever, weakness, if you feel you are getting worse. TAMRA MCALLISTER MD February 23, 2023 15:01
--- NOTE | 2023-02-23 17:52 | Progress Note - Cardiology ---
Cardiology SOAP Progress Note Subjective: No cp or palp or syncope or shortness of breath at rest Shortness of breath with mild activity No n/v/d No focal weakness Gen weakness is improving Objective: I&O/Vital Signs 02/23/23 02/23/23 02/23/23 02/23/23 07:37 08:00 08:52 12:00 Temp 36.1 36.6 Pulse 32 36 43 Resp 16 18 B/P (MAP) 104/92 (96) 145/63 (90) Pulse Ox 97 97 95 O2 Delivery Room Air Room Air Room Air 02/23/23 12:36 Pulse 38 02/23/23 00:00 Intake Total 600 ml Output Total 3030 ml Balance -2430 ml Weight (Pounds): 227 Weight (Ounces): 0.0 Weight (Calculated Kilograms): 102.501549 Constitutional: AAO x 3, well-developed, well-nourished Respiratory: No accessory muscle use; chest expansion is symmetric, chest is bilaterally symmetric, other (fair to good, bilateral air entry) Cardiovascular: regular rate-rhythm, S1 and S2, systolic murmur (soft FRANCA and early diastolic murmur at card base) Gastrointestional: No tender; soft; No guarding, No rebound; audible bowel sounds Extremities: swelling (mild swelling of legs); No clubbing, No cyanosis Neurologic/Psychiatric: oriented x 3, other (moves all limbs) Skin: No rash on exposed areas, No ulcerations on exposed areas Results/Procedures: Labs Laboratory Tests 02/23/23 05:02: White Blood Count 8.4, Red Blood Count 4.73, Hemoglobin 14.0, Hematocrit 40, Mean Corpuscular Volume 85, Mean Corpuscular Hemoglobin 30, Mean Corpuscular Hemoglobin Concent 35, Red Cell Distribution Width 12.9, Platelet Count 224, Mean Platelet Volume 9.5, Immature Granulocyte % (Auto) 1, Neutrophils (%) (Auto) 68, Lymphocytes (%) (Auto) 18, Monocytes (%) (Auto) 11, Eosinophils (%) (Auto) 2, Basophils (%) (Auto) 0, Neutrophils # (Auto) 5.8, Lymphocytes # (Auto) 1.5, Monocytes # (Auto) 0.9, Eosinophils # (Auto) 0.2, Basophils # (Auto) 0.0, Immature Granulocyte # (Auto) 0.1, Sodium Level 141, Potassium Level 3.9, Chloride Level 105, Carbon Dioxide Level 26, Anion Gap 10, Blood Urea Nitrogen 33H, Creatinine 1.28, Estimat Glomerular Filtration Rate 56, BUN/Creatinine Ratio 26, Glucose Level 105, Calcium Level 8.7, Magnesium Level 2.3 Laboratory Tests 02/22/23 04:35 02/23/23 05:02 A/P: Assessment: Ac diastolic CHF - Echo on 02/21/23: The cavity size is normal. There is moderate to severe concentric hypertrophy. Systolic function is normal. LVEF 60-65%. There were no regional wall motion abnormalities identified. Mild enlargement of right heart. Mild to moderate aortic regurgitation. PASP 40-45 mmHg - D- dimer normal at presentation Symptomatic bradycardia and 2:1 AV block - TSH normal at presentation - s/p dual chamber pacemaker on 02/23/23 Mildly elevated troponin - Type 2 [place] due to CHF and bradycardia - Card cath on 02/22/23: no significant CAD, LVEDP 20 mmHg H/o hypertension Plan: * Discontinue diuretics * Continue losartan for bp * Probable discharge tomorrow SYEDA DELCID MD FACP [facility] February 23, 2023 17:52
[2023-02-23] MEDS ORDERED: NS IV 1000 ML 1,000 ML IV SCH ×2 (18:00→18:30)
[2023-02-23] MEDS ORDERED: PATIENT MAY USE OWN MEDS, ALL PO SCH (18:00)
[2023-02-23] MEDS: ENOXAPARIN 40 MG/0.4 ML (LOVENOX) SYR SC SCH (18:46)
[2023-02-23] MEDS: TRIM/SULFAMETH 160/800 (SEPTRA DS) TAB PO SCH (18:46)
--- NOTE | 2023-02-23 18:47 | Diagnostic Imaging Report ---
CHEST 1 VIEW, AP/PA ONLY INDICATION: Status post pacemaker. COMPARISON: Chest radiograph 02/12/2023. FINDINGS: Lungs: Low lung volume. No focal consolidation. Stable pulmonary vasculature. Pleura: No pleural effusion or pneumothorax. Heart and Mediastinum: Cardiomegaly with pulmonary vascular congestion.. Osseous Structures and Soft Tissues: No acute osseous abnormality. Normal soft tissues. IMPRESSION: No acute chest findings. Cardiomegaly with pulmonary vascular congestion. Dictated by: Dictated on workstation # [id number]
[2023-02-23] MEDS ORDERED: LATANOPROST 0.005% (XALATAN) OPHTH SOLN 2.5 ML OU SCH (21:00)
[2023-02-24] VITALS: BP 131/67
[2023-02-24 01:00] VITALS: BP 126/74
[2023-02-24 02:00] VITALS: BP 151/71
--- NOTE | 2023-02-24 02:08 | OPERATIVE REPORT ---
PREOPERATIVE DIAGNOSIS: Profound bradycardia and 2:1 atrioventricular block. POSTOPERATIVE DIAGNOSIS: Profound bradycardia and 2:1 atrioventricular block. PROCEDURE PERFORMED: Permanent dual-chamber pacemaker implantation. ESTIMATED BLOOD LOSS: Less than 10 mL. INDICATIONS: The patient is an 82-year-old gentleman who presented with profound bradycardia, which was symptomatic and resulting in shortness of breath and acute diastolic heart failure. Cardiac catheterization did not indicate any significant coronary artery disease. The bradycardia was in the absence of any rate lowering agents. Bradycardia persisted. Accordingly, dual chamber pacemaker implantation was carried out after having obtained an informed consent. DESCRIPTION OF PROCEDURE: He was brought to the cardiac catheterization laboratory in a fasting state. The left prepectoral area was prepared and draped in the usual sterile fashion. 1% lidocaine was used for local anesthesia. Modified Seldinger technique was used to advance 2 guidewires into the left subclavian vein and the tips were placed in the right atrium. Sharp and blunt dissection was used to make a pacemaker pocket. Good hemostasis was assured. The pocket was packed with gauze soaked in saline. The guidewires were used to advance sheath and the guidewires were removed. The sheaths were used to advance leads and sheath were removed. All lead manipulation was carried out under fluoroscopy. Both leads are active fixation. The ventricular lead was placed at the right ventricular apex. The right atrial lead was placed at the right atrial appendage. Good sensing and capture thresholds were obtained. There was no diaphragmatic stimulation at maximum output. Atrial capture threshold was 0.5 volts at 0.4 milliseconds. The atrial impedance was 570 ohms. P-wave amplitude was 2.5 millivolts. Ventricular capture threshold was 1.25 volts at 0.4 milliseconds. Ventricular pacing impedance was 1387 ohms. R-wave amplitude was 5.5 millivolts. The leads were sutured to the prepectoral fascia using sleeves and 0 Ethibond. The gauze was removed from the pacemaker pocket. The pocket was thoroughly irrigated with saline. The pacemaker was attached to the leads and placed in TYRX pouch and then placed in the pacemaker pocket and the pocket was closed in 2 layers using 3-0 Vicryl. He tolerated the procedure well. The pacemaker is in the AAIR to DDDR mode. Lower rate is 60 beats per minute. Upper tracking rate is 130 beats per minute. The pacemaker is [employer] serial number [id number]. The right atrial lead is Medtronic model 5076-52 with serial number [id number]. The right ventricular lead is Medtronic model 459405, with serial number [id number]. Job ID: [id number] DocumentID: [id number] Dictated Date: 02/23/2023 17:49:04 Soloist Dancer Date: 02/24/2023 02:07:00 Dictated By: SYEDA DELCID MD; ELIEL; FACP; FACC;
[2023-02-24 05:29] LABS: BASOPHILS % (AUTO) 0 % (0-10); EOSINOPHILS # (AUTO) 0.2 10^3/uL (0.0-0.3); EOSINOPHILS % (AUTO) 2 % (0-10); HEMATOCRIT 42 % (40-54); HEMOGLOBIN 14.4 g/dL (13.3-17.7); LYMPHOCYTES # (AUTO) 1.4 10^3/uL (1.0-4.0); LYMPHOCYTES % (AUTO) 13 % (12-44); MEAN CORPUSCULAR HEMOGLOBIN 29 pg (25-34); MEAN CORPUSCULAR HGB CONC 34 g/dL (32-36); MEAN CORPUSCULAR VOLUME 85 fL (80-99); MEAN PLATELET VOLUME 9.6 fL (9.0-12.2); MONOCYTES % (AUTO) 9 % (0-12); NEUTROPHILS % (AUTO) 75 % (42-75); PLATELET COUNT 233 10^3/uL (130-400); WHITE BLOOD COUNT 10.6 10^3/uL (4.3-11.0)
[2023-02-24] MEDS: POTASSIUM CL 10MEQ/50ML IVPB 50 ML IV SCH (05:42)
[2023-02-24] MEDS: KCL 20 MEQ TAB (K-DUR) PO SCH (05:42)
[2023-02-24] MEDS: MAGNESIUM 1 GM/100 ML IVPB 100 ML IV SCH (05:42)
[2023-02-24] MEDS: POTASSIUM BICARB 20 MEQ (EFFER-K) TABLET PO SCH (05:42)
[2023-02-24 05:50] LABS: ALBUMIN 4.1 GM/DL (3.2-4.5); CALCIUM 8.7 MG/DL (8.5-10.1); CREATININE SERUM 1.34 MG/DL (0.60-1.30); MAGNESIUM 2.3 MG/DL (1.6-2.4); TOTAL PROTEIN 6.7 GM/DL (6.4-8.2)
[2023-02-24] MEDS ORDERED: FLUTICASONE NASAL SPRAY (FLONASE) 16 GM BTL NS SCH (09:00)
[2023-02-24] MEDS ORDERED: VANCOMYCIN INJECTION 1,000 MG in NS (IVPB) 250 ML IV SCH (09:00)
[2023-02-24] MEDS: LOSARTAN 100 MG (COZAAR) TABLET PO SCH (09:57)
[2023-02-24] MEDS: TRIM/SULFAMETH 160/800 (SEPTRA DS) TAB PO SCH (09:57)
[2023-02-24] MEDS: DOCUSATE SODIUM 100 MG (COLACE) CAP PO SCH (10:00)
[2023-02-24] MEDS: SENNOSIDES 8.6 MG (SENOKOT) TAB PO SCH (10:01)
[2023-02-24] MEDS ORDERED: SULF1TAB38 PO (10:55)
--- NOTE | 2023-02-24 11:41 | Discharge Summary ---
Diagnosis/Chief Complaint Date of Admission Feb 20, 2023 at 18:03 Date of Discharge Discharge Date: February 24, 2023 Admission Diagnosis Acute HFpEF Primary Care Sp Villasenor MD Discharge Diagnosis (1) Bradycardia Status: Acute (2) Pulmonary hypertension Status: Acute (3) HTN (hypertension) Status: Acute (4) Acute heart failure with preserved ejection fraction (HFpEF) Status: Acute (5) NSTEMI (non-ST elevation myocardial infarction) Status: Acute Discharge Summary Procedures/Consulations Dr Parker- Cardiology Discharge Physical Exam Allergies: Coded Allergies: chicken derived (Verified Allergy, Severe, Shortness of Breath, 02/20/23) chocolate flavor (Verified Allergy, Severe, Shortness of Breath, 02/20/23) tomato (Verified Allergy, Severe, 02/20/23) Penicillins (Unverified Adverse Reaction, Mild, PT ALLERGIC TO MOLDS SO HE AVOIDS PCN-NEVER HAD, 05/23/20) Vitals & I&Os Vital Signs Date Time Temp Pulse Resp B/P (MAP) Pulse Ox O2 Delivery O2 Flow Rate FiO2 02/24/23 04:00 36.6 Room Air 02/24/23 02:00 67 15 95 02/23/23 18:54 21 General Appearance: No Apparent Distress, WD/WN Cardiovascular: Regular Rate, Rhythm Neurologic/Psychiatric: Alert, Oriented x3 Hospital Course Patient was admitted to the hospital secondary to CHF and was found to be bradycardic as well. He was treated with IV diuretics and did well. He diuresed roughly 3 L throughout his admission. He underwent cardiac cath with no interventions by Dr. Roque. Because of his bradycardia down into the 20s a pacemaker was recommended and was placed on February 23. He did well with this procedure. Pacemaker was interrogated prior to discharge. He was discharged home in stable and improved condition to follow-up with Dr. Villasenor. Labs (last 24 hrs) Patient resulted labs reviewed. Pending Labs Imaging: Reviewed Imaging Report Discussion & Recommendations Discharge Planning: >30 minutes discharge planning Discharge Home Medications: Active Scripts Active Bactrim Ds Tablet (Sulfamethoxazole/Trimethoprim) 1 Each Tablet 1 Ea PO BID WITH MEALS Reported Vitamin C (Ascorbic Acid) 500 Mg Tab.chew 500 Mg PO DAILY Vitamin B-12 (Cyanocobalamin (Vitamin B-12)) 1,000 Mcg Tab.subl 1,000 Mcg SL DAILY Antacid (Calcium Carbonate) 168 Mg Calcium (420 Mg) Tab.chew 1-2 Ea PO UD PRN Afrin (Oxymetazoline HCl) 0.05 % Mist 1-2 Achille NA HS PRN Xalatan (Latanoprost) 0.005 % Drops 1 Drop OU HS Fluticasone Propionate 50 Mcg/Actuation Achille.susp 1-2 Achille NSEACH DAILY Losartan-Hctz 100-25 mg Tab (Losartan/Hydrochlorothiazide) 100 Mg-25 Mg Tablet 1 Ea PO DAILY Instructions to patient/family Please see electronic discharge instructions given to patient. TAMRA MCALLISTER MD February 24, 2023 11:41
--- NOTE | 2023-02-24 16:22 | Cardiology Progress Note ---
Subjective Date Seen by Provider: February 24, 2023 Time Seen by Provider: 08:00 Subjective/Events-last exam Patient was seen at bedside, recovering well, feeling better Denies any chest pain Objective-Cardiology Exam Last Set of Vital Signs Vital Signs 02/23/23 02/24/23 02/24/23 18:54 02:00 04:00 Temp 36.6 Pulse 67 Resp 15 B/P (MAP) 151/71 (97) Pulse Ox 95 O2 Delivery Room Air FiO2 21 I&O Intake and Output 02/24/23 00:00 Intake Total 750 ml Output Total 400 ml Balance 350 ml Intake Oral 650 ml IV Total 100 ml Output Urine Total 400 ml # Voids 3 General: Alert, Oriented X3, Cooperative HEENT: Atraumatic, PERRLA Neck: Supple, No JVD, No Thyromegaly Lungs: Clear to Auscultation, Normal Air Movement Heart: Regular Rate, Normal S1, Normal S2, Other (Systolic murmur) Abdomen: Normal Bowel Sounds, Soft, No Tenderness, No Hepatosplenomegaly, No Masses Extremities: No Clubbing, No Cyanosis, No Edema, Normal Pulses, No Tenderness/Swelling Skin: No Rashes, No Breakdown, No Significant Lesion Neuro: Normal Gait, Normal Speech, Strength at 5/5 X4 Ext, Normal Tone, Sensation Intact Psych/Mental Status: Mental Status NL, Mood NL Results Lab Laboratory Tests 02/24/23 04:35 A/P-Cardiology Admission Diagnosis Sinus node dysfunction Cardiac pacemaker Hypertension Symptomatic bradycardia Assessment/Plan Ac diastolic CHF - Echo on 02/21/23: The cavity size is normal. There is moderate to severe concentric hypertrophy. Systolic function is normal. LVEF 60-65%. There were no regional wall motion abnormalities identified. Mild enlargement of right heart. Mild to moderate aortic regurgitation. PASP 40-45 mmHg - D- dimer normal at presentation Symptomatic bradycardia and 2:1 AV block - TSH normal at presentation - s/p dual chamber pacemaker on 02/23/23 Pacemaker site is healing well. No complication Okay for discharge and follow-up as an outpatient with Dr. Parker Mildly elevated troponin - Type 2 [place] due to CHF and bradycardia - Card cath on 02/22/23: no significant CAD, LVEDP 20 mmHg H/o hypertension OLI YEAGER MD February 24, 2023 16:22
== END 2023-02-24 22:41 | disposition home or self-care (01) | DRG 242 ==
LOC: EDUNIT# 15:56 → ER 15:57 → CSD 18:03
PROVIDERS: ADMIT Internal Medicine; ATTEND Internal Medicine
PROC: 4A023N7 Measurement of Cardiac Sampling and Pressure, Left Heart, Percutaneous Approach (ICD-10-PCS; principal; 2023-02-22)
PROC: B2111ZZ Fluoroscopy of Multiple Coronary Arteries using Low Osmolar Contrast (ICD-10-PCS; 2023-02-22)
PROC: 0JH606Z Insertion of Pacemaker, Dual Chamber into Chest Subcutaneous Tissue and Fascia, Open Approach (ICD-10-PCS; 2023-02-23)
PROC: 02H60JZ Insertion of Pacemaker Lead into Right Atrium, Open Approach (ICD-10-PCS; 2023-02-23)
PROC: 02HK3JZ Insertion of Pacemaker Lead into Right Ventricle, Percutaneous Approach (ICD-10-PCS; 2023-02-23)
DX: I11.0 Hypertensive heart disease with heart failure (principal); I21.A1 Myocardial infarction type 2; I50.31 Acute diastolic (congestive) heart failure; I44.0 Atrioventricular block, first degree; K21.9 Gastro-esophageal reflux disease without esophagitis; H40.9 Unspecified glaucoma; R00.1 Bradycardia, unspecified; I27.20 Pulmonary hypertension, unspecified; I45.10 Unspecified right bundle-branch block
CPT/HCPCS: 33208; 36415; 71045; 80048; 80053; 83690; 83735; 83874; 83880; 84145; 84443; 84484; 85025; 85027; 85379; 85610; 85730; 93005; 93041; 93306; 93458; 94760; 96372; 96374